=== PATIENT | male | born 1955 | race Caucasian/White ===

== ENCOUNTER → 2019-07-20 12:32 | Outpatient (CLI) | payer SELFPAY ==
[2019-07-20 14:34] LABS: Absolute Lymphocyte Count 1.78 X10^3/uL (0.83-4.51); Absolute Neutrophil Count 5.1 X10^3/uL (2.0-7.7); Basophil# 0.04 X10^3/uL; Basophil% 0.5 % (0-1); Eosinophil# 0.25 X10^3/uL; Eosinophils% 3.1 % (0-5); Hematocrit 45.5 % (40-54); Hemoglobin 15.4 g/dL (13.0-16.5); Lymphocyte # 1.78 X10^3/ul (4.0); Lymphocyte % 22.4 % (19-41); Mean Corp Hgb Conc 33.8 g/dL (32-36); Mean Corpuscular Hgb 30.9 pg (27.0-32.0); Mean Corpuscular Volume 91.4 fL (80-94); Mean Platelet Vol. 10.8 fl (6.2-12.0); Monocyte# 0.81 X10^3/uL; Monocyte% 10.2 % (0-10); NRBC Flagged by Analyzer 0 % (0-5); Neutrophil # 5.06 X10^3/uL (2.7-7.7); Neutrophil % 63.5 % (47-70); Platelet Count 260 K/mm3 (150-450); RBC Distribution Width CV 13.8 % (11.6-14.6); RBC Distribution Width SD 46.5 fl (35.1-43.9); Red Blood Count 4.98 M/mm3 (4.6-6.2)
[2019-07-20 14:55] LABS: ALB/GLOB Ratio 0.9 RATIO (0.9-2.4); AST(SGOT) 13 U/L (15-37); Alanine Aminotransfer ALT/SGPT 22 U/L (16-61); Albumin, Serum 3.5 g/dL (3.2-5.0); Alkaline Phosphatase 56 U/L (45-117); Anion Gap 6 (5-15); BUN 19 mg/dL (7-18); BUN/Creat Ratio 20.6 RATIO (10-20); Calcium,Total 8.8 mg/dL (8.5-10.1); Chloride 109 mmol/L (98-107); Creatinine, Serum 0.92 mg/dL (0.70-1.30); EST Glomerular Filtration Rate 88 mL/min (>60); Est Glom Filt Rate - Afr Amer 107 mL/min (>60); Globulin 3.9 g/dL (2.2-4.2); Glucose 81 mg/dL (74-106); Protein, Total 7.4 g/dL (6.4-8.2); Sodium Level 141 mmol/L (136-145); Thyroid Stim Hormone (TSH) 0.95 uIU/mL (0.358-3.74)
[2019-07-20 15:20] LABS: Microalbumin,Random Urine 12.5 mg/L (NO RANGE EST.); Microalbumin:Creatinine Ratio 8.4 mg/g CRE (<30 mg/g CRE)
== END ==
PROVIDERS: Family Provider Family Medicine; PCP Family Medicine; Referring Provider Family Medicine; Visit Provider Family Medicine
DX: N40.0 Benign prostatic hyperplasia without lower urinary tract symptoms (principal)
CPT/HCPCS: 36415; 80053; 82043; 82570; 84153; 84443; 85025; G0103

== ENCOUNTER → 2019-07-30 10:32 | Outpatient (CLI) | payer OTHER, SELFPAY | PROVIDERS: Family Provider Family Medicine; PCP Family Medicine; Referring Provider Nurse Practitioner Adult Health; Visit Provider Nurse Practitioner Adult Health | DX: R97.20 Elevated prostate specific antigen [PSA] (principal) | CPT/HCPCS: 36415; 84153 ==

== ENCOUNTER → 2019-09-10 06:11 | Outpatient (CLI) | payer OTHER, SELFPAY ==
--- NOTE | 2019-09-10 | IMM_PTH ---
PATIENT: NIKOLAS ADAM LOC: [facility] U#:[id number] AGE/SX: 70/M ROOM: RE09/10/[address]: Dr. Krish Iglesias MD : 1955 BED: DIS: SPEC #: [id number] RECD: 09/14/19 10:41 STATUS: YVES REQ #: [id number] ROSALIND: 09/10/19 00:[address]: Krish Iglesias DEPT: IMMUNOHISTOCHEMISTRY RECD BY: Valeri Villalta ENTERED: 09/14/19 10:42 SP TYPE: IMMUNO OTHR DR: Dr. Mazin Duran MD Tissues: A - PROSTATE RIGHT B - PROSTATE RIGHT D - PROSTATE LEFT E - PROSTATE LEFT Procedures: 34BE12 (add) P40 (add) 34BE12 (initial) PHYSICIAN & INSTITUTION [place] [id number] SPECIMEN INFORMATION: Tissue Source: A - Right prostate, apex, B - Right prostate, mid, D - Left prostate, apex, E - Left prostate, mid Clinical Info: Elevated PSA Specimen Number: [id number] A, B, D & E CPT code: 81593, 82369 x7 METHODOLOGY: Deparaffinized sections of prefer/formalin-fixed tissue or PAP/DQ stained slides are incubated with monoclonal/polyclonal antibodies/oligonucleotide probes. Localization is made via biotin free immunoperoxidase method. Appropriate controls are performed and reacted as expected. Results on target cell population are indicated in the following table: RESULTS: ANTIBODY / CLONE RESULT Block A P40 (BC28) positive 34BE12 (34BE12) positive Block B P40 (BC28) positive 34BE12 (34BE12) positive Block D P40 (BC28) negative 34BE12 (34BE12) positive Block E P40 (BC28) positive 34BE12 (34BE12) positive These tests were developed and their performance characteristics determined by [facility]. They may not have been cleared or approved by the U.S. Food and Drug Administration. The FDA has determined that such clearance or approval is not necessary. The above immunohistochemical/dualISH markers are ordered and reviewed by the Pathologist. INTERPRETATION: A. Right prostate, apex, core biopsy: Benign prostatic tissue. B. Right prostate, mid, core biopsy: Benign prostatic tissue. D. Left prostate, apex, core biopsy: Focal atypical small acinar proliferation. E. Left prostate, mid, core biopsy: Benign prostatic tissue. AM:nisreen 09/15/19
--- NOTE | 2019-09-10 08:00 | PROSBIL_PTH ---
PATIENT: NIKOLAS ADAM LOC: [facility] U#:[id number] AGE/SX: 70/M ROOM: RE09/10/[address]: Dr. Krish Iglesias MD : 1955 BED: DIS: SPEC #: [id number] RECD: 09/10/19 15:57 STATUS: YVES JERRY #: [id number] ROSALIND: 09/10/19 08:[address]: Krish Iglesias DEPT: SURGICAL PATHOLOGY RECD BY: Bryon Leung ENTERED: 09/11/19 12:35 SP TYPE: PROST BX RICARDO DR: Dr. Mazin Duran MD Tissues: A - PROSTATE RIGHT B - PROSTATE RIGHT C - PROSTATE RIGHT D - PROSTATE LEFT E - PROSTATE LEFT F - PROSTATE LEFT Procedures: PROSTATE BX HEADER OPERATION: Prostate biopsy PRE-OP DIAGNOSIS: Elevated PSA TISSUE SUBMITTED: A - Right apex, B - Right mid, C - Right base, D - Left apex, E - Left mid, F - Left base MICROSCOPIC DIAGNOSIS A. Right prostate, apex, core biopsy: Mild chronic prostatitis. See comment. B. Right prostate, mid, core biopsy: Mild chronic inflammation. See comment. C. Right prostate, base, core biopsy: Focal high-grade prostatic intraepithelial neoplasia (HGPIN). Minimal acute inflammation. D. Left prostate, apex, core biopsy: Focal atypical small acinar proliferation. See comment. E. Left prostate, mid, core biopsy: Minimal chronic inflammation. Focal high-grade prostatic intraepithelial neoplasia (HGPIN). See comment. F. Left prostate, base, core biopsy: Glandular atrophy. AM:nisreen 09/14/19 COMMENT A, B, D & E - Immunohistochemistry ([id number]) supports the above diagnosis Case has been reviewed in consultation with Dr. Elliott who concurs with the above diagnosis. IDC:SJ MICROSCOPIC DESCRIPTION Slides are reviewed. GROSS DESCRIPTION A - Received is one container designated prostate, right apex. The specimen consists of two elongated fragments of light galdamez-white soft tissue each measuring 1 cm in length and 0.1 cm in diameter. The specimen is totally submitted in one cassette. B - Received is one container designated prostate, right mid. The specimen consists of four elongated fragments of light galdamez-white soft tissue measuring 0.3 to 0.7 cm in length and 0.1 cm in diameter. The specimen is totally submitted in one cassette. C - Received is one container designated prostate, right base. The specimen consists of one elongated fragment of light galdamez-white soft tissue measuring 1 cm in length and 0.1 cm in diameter. The specimen is totally submitted in one cassette. D - Received is one container designated prostate, left apex. The specimen consists of one elongated fragment of light galdamez-white soft tissue measuring 1 cm in length and 0.1 cm in diameter. The specimen is totally submitted in one cassette. E - Received is one container designated prostate, left mid. The specimen consists of two elongated fragments of light galdamez-white soft tissue measuring 1 and 1.5 cm in length and 0.1 cm in diameter. The specimen is totally submitted in one cassette. F - Received is one container designated prostate, left base. The specimen consists of three elongated fragments of light galdamez-white soft tissue measuring 0.3 to 1 cm in length and 0.1 cm in diameter. The specimen is totally submitted in one cassette. / SJ:rg 09/11/19 TC:? CPT: 88001 x6
== END ==
PROVIDERS: Family Provider Family Medicine; PCP Family Medicine; Referring Provider Urology; Visit Provider Urology
DX: R97.20 Elevated prostate specific antigen [PSA] (principal)
CPT/HCPCS: 88305; 88341; 88342; G0416

== ENCOUNTER 2019-09-24 00:43 | Emergency (ER) | payer OTHER, SELFPAY ==
[2019-09-24 00:44] VITALS: BP 188/95; PULSE 78; RESP 20; TEMP 36.5; BMI 24.1
--- NOTE | 2019-09-24 01:15 | ED.DCSUM_ITS ---
History of Present Illness Chief Complaint: Complaint Detail of Chief Complaint: urinary retention Informant: Patient Onset: Today - few hrs Context: Gradual Onset Quality: unable to empty full bladder Location: suprapubic Current Severity: Severe Maximum Severity: Severe Worsened by: trying to urinate Relieved by: nothing Associated Symptoms: abd pain Narrative: For the past several weeks patient has been having trouble making a strong s tream of urine. Denies any hematuria, but occasionally it nichols. Subjective fevers off and on for 2 weeks, had a urinalysis performed and diagnosed with an infection in his urine and started on an antibiotic that he cannot remember what it is, started taking it 2 or 3 days ago. He saw urology Dr. Iglesias, had what felt like benign prostatic hypertrophy but had an elevated PSA at 18 so he had a biopsy done and is scheduled to follow-up with him tomorrow regarding the results. However, for the first time in the last several weeks, tonight he is unable to urinate. He last urinated 4 or 5 hours prior to arrival and it was fairly unremarkable otherwise. He denies any other new symptoms except for being constipated for the past 2 days. When he felt like he emptied his bladder 4 or 5 hours ago, he then had no abdominal pain. He has had no nausea or vomiting or pain in his back today. - Past Medical History (1) Enlarged prostate Status: Chronic Past Medical History - Allergies and Home Meds Allergies/Adverse Reactions: Allergies No Known Allergies Allergy (Verified 09/24/19 00:49) Primary Care Physician: Mazin Duran MD [Primary Care Provider] - Lives: Spouse/ Significant Other Smoking Status: Current every day smoker Review of Systems General: Reports: Fever, Subjective. Denies: Chills Eyes: Denies: Visual changes - bilaterally, Diplopia ENT: Denies: Rhinorrhea, Sore throat Cardiovascular: Denies: Chest pain, Palpitations Respiratory: Denies: Dyspnea, Cough, Dyspnea on exertion Gastrointestinal: Reports: Abdominal pain. Denies: Nausea, Vomiting, Diarrhea, Melena, Hematochezia Genitourinary: Reports: Dysuria, - - urinary retention. Denies: Hematuria, Frequency Musculoskeletal: Denies: Back pain, Extremity Pain Skin: Denies: Rash, Wounds Neurological: Denies: Headache, Weakness, Numbness Physical Exam Vital Signs/Narrative: Vital Signs Temp Pulse Resp BP 09/24/19 00:44 97.7 F L 78 20 H 188/95 H Inital Vital Signs reviewed: Yes General: Well nourished - but pacing in the room, uncomfortable, Well developed, No Acute Distress Head: Normocephalic, Atraumatic Eyes: Perrl, EOMI ENT: Moist mucous membranes, No rhinorrhea Neck: Supple, Nontender Cardiovascular: Regular rate, Regular rhythm, No murmurs Respiratory: No distress, CTA bilaterally, Chest nontender Abdomen: Soft, Normal bowel sounds, Tender - suprapubic, - - suprapubic distension. Negative for: Guarding, Rebound tenderness Back: Nontender, Normal Inspection. Negative for: CVA tenderness Extremities: Nontender, No edema Skin: Normal color, No rash Neurological: Alert, Oriented x3, Cranial nerves II-XII grossly intact, Normal Strength, Normal Sensation, Normal Gait Psychological: Normal affect, Normal Mood Diagnostic/Tx/Re-eval - Medical Decision Making Bautista catheter was placed after pretreatment with lidocaine urethral, and it was able to be passed easily by nursing. An initial 600 cc of normal-appearing, nonbloody, transparent yellow urine returned and the patient felt immediately better with resolution of his pain. He later had an episode of burning at the urethral meatus, but it improved and he asked for some Tylenol which was given. I do not feel we need to repeat an urinalysis since he is currently on antibiotics, and he appears to be on tamsulosin so I do not think we need to add any other medications right now. He is following up with urology tomorrow and is discharged home with a leg bag. ED Disposition - Plan for ED Patient: Disposition: Home or Assisted Living Diagnosis: Acute urinary retention, Enlarged prostate Instructions: URINARY RETENTION, Male Referrals: Mazin Duran MD [Primary Care Provider] - Krish Iglesias MD [STAFF PHYSICIAN] - Keep Juve appointment
[2019-09-24] MEDS: Lidocaine Jelly 2% 20 ML Syringe (URO-JET) 20 APPLIC TOPICAL (01:26)
[2019-09-24 01:33] VITALS: BP 150/95; PULSE 67; RESP 18; O2SAT 96
[2019-09-24 01:52] VITALS: BP 170/93; PULSE 67; O2SAT 97
--- NOTE | 2019-09-24 02:16 | ED.RN ---
LEG BAG APPLIED TO PATIENT LEG. THERE WASN'T ANY SLACK ON THE CATHETER IT SELF COMING OUT OF THE PENIS, SO THIS NURSE REMOVED THE CATHETER SECURE AND WAS ABLE TO PULL THE CATHETER ABOUT TWO INCHES OUT. A NEW CATHETER SECURE WAS APPLIED AND IT GAVE IT SOME MORE SLACK. PATIENT GOT UP TO TRY AND HAVE A BOWEL MOVEMENT AND C/O PAIN LEVEL 7/10 IN THE PENIS AREA. HE WANTED TO TALK TO THE DOCTOR BEFORE HE WAS DISCHARGE. DR. FOLEY WENT IN AND TALKED TO THE PATIENT, AND HE TOLD THIS NURSE TO GIVE THE PATIENT A FLEETS ENEMA AND LET HIM DO IT HIMSELF IN THE BATHROOM. FLEETS ENEMA GIVING TO THE PATIENT ALSO VERBAL INSTRUCTIONS GIVEN BY THIS NURSE.
[2019-09-24] MEDS: Fleet Enema 1 ML RECTAL (02:28)
--- NOTE | 2019-09-24 02:32 | ED.RN ---
DR. FOLEY MADE AWARE THAT PATIENT DID NOT HAVE AND RESULTS WITH THE FLEETS ENEMA. THIS NURSE TOLD HIM THAT SITTING ON THE TOILET IS NOT THE BEST METHOD BECAUSE IT MAKES IT DIFFICULT TO HOLD THE FLUID. I SUGGESTED THAT HE DO A FLEETS ENEMA AT HOME LAYING ON HIS LEFT SIDE AND HOLD THE FLUID. I ALSO EXPLAINED TO HIM THAT THE STOOL MIGHT NOT BE FAR DOWN INTO THE COLON NEAR THE RECTUM AND SOME MAGNESIUM CITRATE MIGHT BE A BETTER OPTION TO DRINK AT HOME. DR. FOLEY WAS ON WITH THESE INSTRUCTIONS. DR. FOLEY IS ALSO AWARE OF PATIENT'S BP ON DISCHARGE AND HE THOUGHT IT WAS D/T PATIENT'S PAIN.
== END 2019-09-24 02:35 | disposition home or self-care (01) ==
PROVIDERS: Emergency Provider Emergency Medicine; PCP Family Medicine
DX: N40.1 Benign prostatic hyperplasia with lower urinary tract symptoms (principal); R33.8 Other retention of urine; K59.00 Constipation, unspecified; F17.200 Nicotine dependence, unspecified, uncomplicated; Z79.899 Other long term (current) drug therapy
CPT/HCPCS: 51702; 99283

== ENCOUNTER 2019-09-30 13:56 | Day surgery (SDC) | payer OTHER, SELFPAY ==
[2019-09-29 08:14] VITALS: BP 138/58; PULSE 70; RESP 17; TEMP 36.7; O2SAT 97; BMI 23.7
--- NOTE | 2019-09-29 08:43 | SDCEKG_ITS ---
Test Reason : Blood Pressure : / mmHG Vent. Rate : 065 BPM Atrial Rate : 065 BPM P-R Int : 146 ms QRS Dur : 100 ms QT Int : 416 ms P-R-T Axes : 072 065 -07 degrees QTc Int : 432 ms Normal sinus rhythm Cannot rule out Inferior infarct , age undetermined Abnormal ECG Confirmed by JEFFERY DE PAZ ([id number]), graphics editor AFAU HARP ([id number]) on 10/01/2019 8:24:30 AM Referred By: Krish Iglesias Confirmed By:JEFFERY DE PAZ
[2019-09-30] VITALS (11 sets, daily range): BP systolic 117–156; BP diastolic 65–95; PULSE 65–83; RESP 16–20; TEMP 36.3–36.8; O2SAT 92–95; BMI 23.7
[2019-09-30] MEDS: Lactated Ringers 1,000 ML 100 ML IV ×2 (14:18→17:41)
--- NOTE | 2019-09-30 15:55 | PROS_PTH ---
PATIENT: NIKOLAS ADAM [place] [facility] [place][id number] AGE/SX: 64/M ROOM: RE09/30/[address]: Dr. Krish Iglesias MD : 1955 BED: DIS: 10/01/2019 SPEC #: [id number] RECD: 10/01/19 12:25 STATUS: YVES JERRY #: [id number] ROSALIND: 09/30/19 15:[address]: Krish Iglesias DEPT: SURGICAL PATHOLOGY RECD BY: Andres Martinez ENTERED: 10/01/19 14:00 SP TYPE: TURP OTHR DR: Dr. Mazin Duran MD Tissues: Prostate, NOS Procedures: Surgery Specimen Level IV HEADER OPERATION: Cystoscopy, TUR of prostate, Olympus PRE-OP DIAGNOSIS: Benign prostatic hypertrophy with urinary retention TISSUE SUBMITTED: Prostate tissue MICROSCOPIC DIAGNOSIS Prostate, transurethral resection: Benign nodular hyperplasia, glandular and stromal types. Chronic prostatitis with focal acute prostatitis. AM:nisreen 10/02/19 MICROSCOPIC DESCRIPTION Slides are reviewed. GROSS DESCRIPTION Received is one container labeled with the patient's name and designated prostate tissue. The specimen consists of multiple irregular fragments of pink-galdamez, rubbery, soft tissue that in aggregate weigh 14.8 gm and measure in aggregate 6 x 5 x 2.5 cm. The entire specimen is submitted in 12 cassettes. / SJ:nisreen 10/01/19 TC:3 CPT: 80198
[2019-09-30] MEDS: Cefazolin 2 GM in 0.9% Normal Saline 100 ML IV (16:18)
--- NOTE | 2019-09-30 16:19 | DCINST_ITS ---
Discharge Diet: Light diet - advance as tolerated Discharge Activity: Return to Normal Activity Call your doctor if your incision/area has: Sudden Increased Bleeding Call your doctor if you observe: Fever of 101 or Higher, Inability to urinate, Uncontrolled pain Suture Line Care: Avoid Pulling/Pushing, Avoid Pinching/Bending Instructions: Transurethral Resection of the Prostate (TURP): Home Recovery Allergies/Adverse Reactions: Allergies No Known Allergies Allergy (Verified 09/30/19 14:11) Medications to take at Discharge Tamsulosin HCl [Flomax] 0.4 mg PO DAILY 09/24/19 Ciprofloxacin HCl 500 mg PO BID 09/29/19 Ciprofloxacin [Cipro] 500 mg PO BID #14 tab 09/30/19 Ibuprofen 600 mg PO Q6H PRN PRN #20 tab 09/30/19 The following prescriptions were given: Ciprofloxacin [Cipro] 500 mg PO BID #14 tab Transmission Status: Sent to [id number] Ibuprofen 600 mg PO Q6H PRN PRN #20 tab PRN Reason: Pain Score 1-10/10 Transmission Status: Sent to [id number] Primary Care Physician: Mazin Duran MD [Primary Care Provider] - Test Results: Test results from this visit will be discussed in further detail at your follow- up appointment, if applicable. Please Follow Up With: Krish Iglesias MD When: in 2 weeks, please call to make an appointment. Proposed Discharge Date: 10/01/19
--- NOTE | 2019-09-30 17:32 | OP.PCM_ITS ---
Report of Operation Date of Procedure: 09/30/19 Pre-Operative Diagnosis: BPH with obstruction and urinary retention Post-Operative Diagnosis: Same Surgery/Procedure Performed:: Transurethral resection of the prostate Description of Surgical Findings:: 64-year-old male with a very large prostate about 100 g of developed retention of urine he is failed several voiding trials he is on medical therapy he is elected to undergo transurethral resection to hopefully restore normal voiding we talked about the risk of surgery including bleeding infection control problems after surgery sphincter problems retrograde ejaculation. After talking about the surgery explaining everything in detail has done he signed the consent form all his questions were answered. 64-year-old male taken back to the operating room at the smooth induction of general anesthesia he was placed in dorsolithotomy position the penis and testicles were prepped and draped in usual sterile fashion, we removed the catheter he has been now put in a 26 Somali continuous-flow resectoscope and inspected the prostate and bladder he had bilateral hypertrophy no median lobe identified the right and left ureteral orifice no tumors were seen within the bladder he had a very large protruding flat prostate into the bladder I then started with the resection at the floor the prostate working my way to the roof at the 12:[address] back to the verumontanum I resected the right lobe of the prostate and then resect the left lobe of the prostate I then resected all the tissue we then very carefully resected the apical tissue I did a flow test had a nice wide open flow sphincter was intact took about an hour to resect the entire prostate and a very complete resection had a lot of tissue out. After obtaining hemostasis but a 22 Somali catheter in the bladder and francisco nuous irrigation the urine was nice and clear anesthesia was reversed is taken back to PACU good condition. The end of the resection we identified the right ureter orifice and the left ureteral orifices were uninjured we identified the verumontanum this was uninjured and the sphincter was intact. Type of Anesthesia:: General Drains: tanner. - Admit VTE Documentation VTE Present on Admission: No
[2019-09-30] MEDS: 0.9% Normal Saline 1,000 ML 75 ML IV (19:43)
[2019-09-30] MEDS: oxyCODONE 5 MG Tablet PO (21:58)
[2019-09-30] MEDS: Docusate Sodium 100 MG Capsule PO (21:59)
[2019-10-01] MEDS: Ciprofloxacin 400 MG/200 ML BAG 200 MG IV ×2 (00:17→11:40)
[2019-10-01] MEDS: oxyCODONE 5 MG Tablet PO (02:53)
[2019-10-01] MEDS: Tolterodine Tartrate 4 MG CAP.SA PO (02:54)
[2019-10-01 05:25] VITALS: BP 123/68; PULSE 68; RESP 18; TEMP 36.4; O2SAT 96
[2019-10-01 06:26] LABS: Hematocrit 40.2 % (40-54); Hemoglobin 13.6 g/dL (13.0-16.5); Mean Corp Hgb Conc 33.8 g/dL (32-36); Mean Corpuscular Hgb 31.1 pg (27.0-32.0); Platelet Count 346 K/mm3 (150-450); RBC Distribution Width CV 13.6 % (11.6-14.6); RBC Distribution Width SD 46.4 fl (35.1-43.9); Red Blood Count 4.37 M/mm3 (4.6-6.2)
[2019-10-01 06:50] LABS: Anion Gap 5 (5-15); BUN 18 mg/dL (7-18); BUN/Creat Ratio 17.8 RATIO (10-20); Calcium,Total 8.4 mg/dL (8.5-10.1); Chloride 109 mmol/L (98-107); Creatinine, Serum 1.01 mg/dL (0.70-1.30); EST Glomerular Filtration Rate 80 mL/min (>60); Est Glom Filt Rate - Afr Amer 96 mL/min (>60); Estimated Creatinine Clearance 80.77 ml/min; Glucose 122 mg/dL (74-106); Potassium 4.4 mmol/L (3.5-5.1); Sodium Level 139 mmol/L (136-145)
[2019-10-01] MEDS: 0.9% Normal Saline 1,000 ML 75 ML IV (08:05)
[2019-10-01 08:36] VITALS: BP 121/68; PULSE 72; RESP 16; TEMP 36.3; O2SAT 96
[2019-10-01] MEDS: Pantoprazole Sodium 40 MG Tablet PO (09:25)
[2019-10-01] MEDS: Docusate Sodium 100 MG Capsule PO (09:25)
[2019-10-01 12:45] VITALS: BP 118/83; PULSE 72; RESP 16; TEMP 36.4; O2SAT 96
== END 2019-10-01 13:28 | disposition home or self-care (01) ==
LOC: SDC 13:56 → AC 13:58 → MS3 16:21
PROVIDERS: PCP Family Medicine; Referring Provider Urology; Visit Provider Urology
PROC: (CPT 52630; principal; 2019-09-30 15:45)
DX: N40.1 Benign prostatic hyperplasia with lower urinary tract symptoms (principal); N41.0 Acute prostatitis; N41.1 Chronic prostatitis; R33.8 Other retention of urine; N13.8 Other obstructive and reflux uropathy; R97.20 Elevated prostate specific antigen [PSA]; K21.9 Gastro-esophageal reflux disease without esophagitis; Z87.891 Personal history of nicotine dependence; Z79.899 Other long term (current) drug therapy
CPT/HCPCS: 52630; 80048; 85027; 88305; 93005; 99251; J7030; J7120; G0463; J0744

== ENCOUNTER 2020-11-25 15:57 | Outpatient (RCR) | payer OTHER, SELFPAY ==
[2019-09-30 19:27] VITALS: BMI 23.7
[2020-11-25] MEDS: COVID-19 VACC, MRNA(PFIZER)/PF 30 MCG/0.3 ML SYRINGE IM (08:39)
[2020-12-16] MEDS: COVID-19 VACC, MRNA(PFIZER)/PF 30 MCG/0.3 ML SYRINGE IM (08:27)
== END 2020-11-25 23:59 ==
LOC: IMMUN 15:57
PROVIDERS: PCP Family Medicine; Visit Provider Family Medicine
DX: Z23 Encounter for immunization (principal)
CPT/HCPCS: 0001A; 0002A; 91300

== ENCOUNTER → 2021-04-03 18:03 | Outpatient (CLI) | payer OTHER, SELFPAY ==
[2019-09-30 19:27] VITALS: BMI 23.7
== END ==
PROVIDERS: PCP Family Medicine; Referring Provider Family Medicine; Visit Provider Family Medicine
DX: L02.619 Cutaneous abscess of unspecified foot (principal)
CPT/HCPCS: 87070; 87205

== ENCOUNTER 2021-10-31 09:08 | Inpatient (IN) | payer OTHER, SELFPAY ==
[2021-10-31] VITALS (9 sets, daily range): BP systolic 115–122; BP diastolic 75–95; PULSE 80–104; RESP 16–18; TEMP 36.6–36.7; O2SAT 94–97; BMI 21.6
--- NOTE | 2021-10-31 09:27 | EKG12_ITS ---
Test Reason : Blood Pressure : / mmHG Vent. Rate : 100 BPM Atrial Rate : 100 BPM P-R Int : 144 ms QRS Dur : 118 ms QT Int : 370 ms P-R-T Axes : 072 069 196 degrees QTc Int : 477 ms Normal sinus rhythm Incomplete left bundle branch block Nonspecific ST and T wave abnormality Prolonged QT Abnormal ECG Confirmed by HEMA BLUM, KAPIL ([id number]), fan mail editor EDSON REN ([id number]) on 11/02/2021 8:09:38 AM Referred By: NICOLLE Confirmed By:KAPIL GARRIDO MD
--- NOTE | 2021-10-31 09:28 | EDS_ITS ---
HPI History of Present Illness Chief Complaint: Nausea/Vomiting Informant: patient and spouse/S.O. Narrative Narrative: Patient presented with symptoms that have been going on for about 10 days. His started initially with similar symptoms but never really got dyspnea. This patient started with upper airway nasal congestion mild sore throat. He is then progressed to nonproductive cough with dyspnea and some mild dyspnea on exertion. He is occasionally had a tight feeling in his chest with the dyspnea but never had chest pain. He is also had some baseline nausea throughout this. He vomited this morning but that was only after taking Augmentin which was prescribed for him yesterday. He has not had diarrhea. His appetite has been down and he is lost almost 10 pounds in the last 10 days to 2 weeks. He has not had fevers. He does have significant malaise. He has mild myalgias. Both he and his are fully vaccinated and boosted. He had LiveBid vaccines. She had Covid in September and recovered well. His biggest concern is the dyspnea that he gets. He has no chronic medical conditions No medications other than the Augmentin started yesterday No known drug allergies No recent surgeries Lives with , active, not currently smoker. [facility] Medical History (Updated 10/31/21 @ 17:[address] Deangelo Snow MD) Congestive heart failure (CHF) Former smoker Kidney stones Home Medications amoxicillin-pot clavulanate 1 tab PO BID 10/31/21 [History Last Taken 10/30/21] Allergy/AdvReac Type Severity Reaction Status Date / Time No Known Allergies Allergy Verified 10/31/21 09:12 Family History (Updated 10/31/21 @ 12:[address] Mike Alicia MD) Father Ruptured thoracic aortic aneurysm Mother Hepatic cancer Surgical History History of prostate surgery Social History Smoking Status: Former smoker ROS ROS ED Constitutional Constitutional ED: Reports weight loss; Denies chills or fever(s) Eyes Eyes: Denies blurry vision ENT ENT ED: Reports rhinorrhea and sore throat Cardiovascular Cardiovascular: Denies chest pain, palpitations or racing heartbeat Respiratory/Chest Respiratory/Chest: Reports cough and dyspnea; Denies sputum Gastrointestinal Gastrointestinal: Reports nausea and vomiting; Denies abdominal pain or diarrhea Genitourinary Genitourinary ED: Denies dysuria or hematuria Musculoskeletal Musculoskeletal: Reports myalgias Integumentary Denies rash Neurologic Neurologic: Denies headache(s), paresthesias or weakness Psychiatric Psychiatric: Denies depression Endocrine Endocrinology: Denies polydipsia or polyuria Allergic/Immunologic Allergic/Immunologic ED: Denies mouth swelling or urticaria EXAM Physical Exam Const Vital Signs: 10/31/21 09:09 10/31/21 09:11 10/31/21 09:52 Temperature 98 F 98 F Temperature Source Temporal Temporal Pulse Rate 80 80 98 Respiratory Rate 18 18 16 Respiratory Pattern Normal Blood Pressure 120/88 H 120/88 H Blood Pressure Mean 98 98 Pulse Ox 95 95 Oxygen Delivery Method Room Air Room Air 10/31/21 11:14 Temperature Temperature Source Pulse Rate 97 Respiratory Rate 18 Respiratory Pattern Blood Pressure 121/75 H Blood Pressure Mean 90 Pulse Ox 96 Oxygen Delivery Method Room Air Positive well nourished and well developed General Appearance ED: well developed and NAD; Negative for cyanotic or diaphoretic HEENT Reports moist mucous membranes Eyes General Eye ED: Negative for pale conjunctiva or scleral icterus Neck no JVD Chest Wall inspection of chest normal and palpation of chest normal Resp normal respiratory effort and No clear to auscultation bilaterally Resp Narrative: Lungs actually sound relatively clear. There may be minimal prolonged expiration but not significant. I do not hear active wheezing. There is no pain with deep breath. Effort and Inspection: Negative for pain with movement Auscultation: Negative for rales, rhonchi or wheezes Cardio regular rate, regular rhythm and no murmurs GI normal to inspection, nondistended, normoactive bowel sounds and non-tender Palpation: soft Back/Spine no CVA tenderness Extremity normal to inspection Extremity Narrative: No cords, edema, tenderness, distended veins. Distal pulses are normal. General Extremety ED: Negative for edema or tenderness General Extremity: Negative for edema Neuro Sensorium / Orientation: alert Psych mental status grossly normal Skin no rashes or lesions noted MDM MDM MDM Narrative Medical decision making narrative: Shows normal white count hemoglobin. D-dimer is elevated 1.43. Electrolytes show no marked abnormalities. There is mild dehydration. He is given some fluids. Final PCR came back negative. X-ray showed some patchy infiltrate mostly on the right. With this and the D-dimer we did do a CTA. This showed bilateral effusions greater on the right and some possible patchy infiltrate. Of note, the patient is already on antibiotics and has taken them so they were not given here. Patient also had significantly elevated BNP. I think with the dyspnea, elevated BNP, CT findings hospitalization is appropriate. Lab Data Attestation: I reviewed the patient's lab results. Labs: Laboratory Results - last 24 hr 10/31/21 10/31/21 10/31/21 09:35 09:35 09:35 WBC 7.9 RBC 5.21 Hgb 16.4 Hct 46.4 MCV 89.1 MCH 31.5 MCHC 35.3 RDW Std Deviation 45.9 H RDW Coeff of Danilo 14.0 Plt Count 249 MPV 11.0 Immature Gran % (Auto) 0.400 Neut % (Auto) 69.2 Lymph % (Auto) 19.5 [place] % (Auto) 8.7 Eos % (Auto) 1.8 Baso % (Auto) 0.4 Absolute Neuts (auto) 5.5 Absolute Lymphs (auto) 1.54 Nucleated RBC % 0 D-Dimer Quant (PE/DVT) 1.43 H* Sodium 139 Potassium 4.1 Chloride 108 H Carbon Dioxide 22.0 Anion Gap 9 BUN 21 H Creatinine 0.91 Estim Creat Clear Calc 81.55 Est GFR (MDRD) Af Amer 108 Est GFR (MDRD) Non-Af 89 BUN/Creatinine Ratio 23.0 H Glucose 99 Calcium 8.4 L Troponin I High Sens 91 H B-Natriuretic Peptide TSH COVID-19 ([facility]) 10/31/21 10/31/21 10/31/21 09:35 09:35 09:35 WBC RBC Hgb Hct MCV MCH MCHC RDW Std Deviation RDW Coeff of Danilo Plt Count MPV Immature Gran % (Auto) Neut % (Auto) Lymph % (Auto) [place] % (Auto) Eos % (Auto) Baso % (Auto) Absolute Neuts (auto) Absolute Lymphs (auto) Nucleated RBC % D-Dimer Quant (PE/DVT) Sodium Potassium Chloride Carbon Dioxide Anion Gap BUN Creatinine Estim Creat Clear Calc Est GFR (MDRD) Af Amer Est GFR (MDRD) Non-Af BUN/Creatinine Ratio Glucose Calcium Troponin I High Sens B-Natriuretic Peptide 2474.2 H TSH 1.44 COVID-19 ([place]) Not Detected Radiography Diagnostic Testing: Clinical Impression(s) from Imaging Studies Chest X-Ray 10/31/21 10:00 IMPRESSION: Patchy right lower lobe infiltrate and blunting of the right costophrenic angle. Electronically Signed: Spencer Choi MD at 10:24 EST , Chest CTA 10/31/21 10:32 IMPRESSION: Bilateral pleural effusions right greater than left with bibasilar infiltrates worse on the right side. Electronically Signed: Spencer Choi MD at 10:54 EST , EKG Initial EKG: Comments: EKG done for dyspnea read by me shows a normal sinus rhythm with overall rate of 100. There is a incomplete left bundle branch block/LVH with diffuse nonspecific ST and T wave changes. However, no convincing evidence of acute infarct or ischemia. [place] interval is normal. QRS duration is just within normal at 118. QTc is high end of normal at 477 ms. Discharge Plan Dx/Rx/DC Orders Clinical Impression: New onset of congestive heart failure, Acute dyspnea, Bilateral pleural effusion Disposition Disposition: Acute Care Hospital [facility], [place] Discharge Date/Time: 10/31/21 13:32
[2021-10-31 09:46] LABS: Absolute Lymphocyte Count 1.54 X10^3/uL (0.83-4.51); Absolute Neutrophil Count 5.5 X10^3/uL (2.0-7.7); Basophil# 0.03 X10^3/uL; Basophil% 0.4 % (0-1); Eosinophil# 0.14 X10^3/uL; Eosinophils% 1.8 % (0-5); Hematocrit 46.4 % (40-54); Hemoglobin 16.4 g/dL (13.0-16.5); Lymphocyte # 1.54 X10^3/ul (0.83-4.51); Lymphocyte % 19.5 % (19-41); Mean Corp Hgb Conc 35.3 g/dL (32-36); Mean Corpuscular Hgb 31.5 pg (27.0-32.0); Mean Corpuscular Volume 89.1 fL (80-94); Monocyte# 0.69 X10^3/uL; Monocyte% 8.7 % (0-10); NRBC Flagged by Analyzer 0 % (0-5); Neutrophil # 5.47 X10^3/uL (2.7-7.7); Neutrophil % 69.2 % (47-70); Platelet Count 249 K/mm3 (150-450); RBC Distribution Width SD 45.9 fl (35.1-43.9); Red Blood Count 5.21 M/mm3 (4.6-6.2); White Blood Count 7.9 K/mm3 (4.4-11.0)
[2021-10-31] MEDS: Ipratropium/Albuterol Sulfate 3 ML AMPUL.NEB INHALATION (09:52)
--- NOTE | 2021-10-31 10:00 | RAD_ITS ---
STUDY: X-RAY CHEST REASON FOR EXAM: Male, 66 years old. Cough TECHNIQUE: Single AP portable view of the chest. COMPARISON: None. FINDINGS: EKG electrodes are seen. Patchy right lower lobe infiltrate. Blunting of the right costophrenic angle. Normal size heart. Normal mediastinum and jairo. Normal visualized pulmonary arteries. Normal visualized aortic arch and descending thoracic aorta. Normal visualized thoracic spine. Normal visualized ribs, clavicles, and shoulders. There is no demonstrated abnormality of the visualized soft tissue structures of the upper abdomen. RAD/Chest 1 View (Portable) IMPRESSION: Patchy right lower lobe infiltrate and blunting of the right costophrenic angle. Electronically Signed: Spencer Choi MD at 10:24 EST ,
[2021-10-31 10:04] LABS: Anion Gap 9 (5-15); BUN 21 mg/dL (7-18); Calcium,Total 8.4 mg/dL (8.5-10.1); Chloride 108 mmol/L (98-107); Creatinine, Serum 0.91 mg/dL (0.70-1.30); EST Glomerular Filtration Rate 89 mL/min (>60); Est Glom Filt Rate - Afr Amer 108 mL/min (>60); Estimated Creatinine Clearance 81.55 ml/min; Glucose 99 mg/dL (74-106); Potassium 4.1 mmol/L (3.5-5.1); Sodium Level 139 mmol/L (136-145); Troponin-I HS 91 pg/mL (3.0-78.0)
[2021-10-31 10:08] LABS: D-Dimer Quantitative (DVT/PE) 1.43 FEU/ug/m (0.27-0.49)
[2021-10-31 10:18] LABS: BNP,B-Type NATRIURETIC PEPTIDE 2474.2 pg/mL (0-100)
--- NOTE | 2021-10-31 10:32 | CT_ITS ---
STUDY: CTA CHEST REASON FOR EXAM: Male, 66 years old. PE, elevated D-dimer RADIATION DOSAGE (If Supplied By Facility): CTDIvol = ( 11.43 ) mGy, DLP = ( 329.11 ) mGycm TECHNIQUE: The examination was performed with the intravenous administration of IV 100mL Isovue-370. Post-processing of the angiographic images was performed, with multiplanar reformation and 3D reconstruction. Individualized dose optimization techniques were used for this CT. COMPARISON: Comparison is made with prior chest radiograph done earlier today. FINDINGS: Normal enhancement of the main pulmonary artery and right and left pulmonary arteries. Normal enhancement of the bilateral peripheral pulmonary arteries. There is no demonstrated pulmonary embolism. Normal thoracic aorta and visualized great vessels. There is no demonstrated aortic dissection. Normal heart and pericardium. Normal mediastinum. There are calcified bilateral hilar lymph nodes. Scattered calcified granulomas in the left upper lobe. Normal visualized trachea and bronchi. The lungs are well expanded. Small bilateral pleural effusions right greater than left. Patchy bibasilar infiltrates worse at the right lung base. Increased interstitial markings. Normal chest wall structures. Normal osseous structures. Normal visualized upper abdomen. CT/CTA Chest W/WO Contrast IMPRESSION: Bilateral pleural effusions right greater than left with bibasilar infiltrates worse on the right side. Electronically Signed: Spencer Choi MD at 10:54 EST ,
--- NOTE | 2021-10-31 12:12 | NURSING ---
HOSPITALIST FOR DR VALVERDE
--- NOTE | 2021-10-31 12:19 | ECHOCS_ITS ---
Reason For Study: SOB, CHF Procedure This was a 2D Doppler, Color Flow transthoracic echocardiogram. The study was technically difficult. Contrast injection was performed. Exam performed portable in patient room. Left Ventricle Severely dilated left ventricle. Severe segmental systolic dysfunction (see wall motion). The estimated ejection fraction is 10 %. There is evidence of diastolic dysfunction. Anterio-Basal: Hypokinetic. Lateral-Basal: Hypokinetic. Posterior-Basal: Akinetic. Infero-Basal: Akinetic. Basal inferoseptal: Hypokinetic. Basal anteroseptal: Hypokinetic. Mid-Anterior : Akinetic. Mid-Lateral : Hypokinetic. Mid-Posterior: Akinetic. Mid-Inferior: Akinetic. Mid-inferoseptal : Akinetic. Mid- anteroseptal : Akinetic. [place] : Akinetic. Right Ventricle Normal RV size. Normal systolic function. Atria Normal right atrium. No doppler evidence for ASD. Mitral Valve There is no mitral annular calcification. Mild papillary muscle dysfunction of the mitral valve. Moderate (2+) eccentric mitral valve insufficiency. Tricuspid Valve Normal tricuspid valve. Moderate (2+) eccentric tricuspid valve insufficiency. Right ventricular systolic pressure estimated to be 36 mmHg. Aortic Valve Trisinus/trileaflet aortic valve. Mild diffuse aortic valve thickening. Mild focal aortic valve calcification. Pulmonic Valve The pulmonic valve is not well visualized. Great Vessels Normal sized aortic root. Pericardium/Pleural No pericardial effusion. Medication Diluted definity 5ml given slow IV push to enhance endocardial definition. MMode/2D Measurements & Calculations LVIDd: 6.4 cm IVSd: 1.1 cm Ao root diam: 3.4 cm LVIDs: 6.2 cm LVPWd: 0.95 cm RVDd: 3.1 cm FS: 3.7 % LAV(MOD-bp): 42.1 ml LVAd ap4: 65.6 cm2 LVAd ap2: 62.2 cm2 LAV(MOD-bp) Indexed: 22.2 ml/m2 LVLd ap4: 10.8 cm LVLd ap2: 10.2 cm LAV(MOD-sp2): 44.9 ml EDV(MOD-sp4): 328.6 ml EDV(MOD-sp2): 314.5 ml LAV(MOD-sp4): 39.5 ml EDV(sp4-el): 338.0 ml EDV(sp2-el): 321.2 ml LVAs ap4: 57.4 cm2 LVAs ap2: 58.4 cm2 LVLs ap4: 10.2 cm LVLs ap2: 10.8 cm ESV(MOD-sp4): 264.1 ml ESV(MOD-sp2): 257.6 ml ESV(sp4-el): 274.7 ml ESV(sp2-el): 268.5 ml EF(MOD-sp4): 19.6 % EF(MOD-sp2): 18.1 % EF(sp4-el): 18.7 % SV(MOD-sp4): 64.5 ml SV(MOD-sp2): 56.9 ml SV(sp4-el): 63.3 ml LA A4 area: 15.9 cm2 LA dimension(2D): 3.2 cm RA A4 area: 12.1 cm2 Doppler Measurements & Calculations MV E max dilan: 55.9 cm/sec Lat Peak E' Dilan: 3.9 cm/sec Med Peak E' Dilan: 3.3 cm/sec MV A max dilan: 62.1 cm/sec E/E' lat: 14.3 E/E' med: 17.1 MV E/A: 0.90 Ao V2 max: 69.1 cm/sec LV V1 max: 56.3 cm/sec PA V2 max: 49.6 cm/sec Ao max P.9 mmHg LV V1 max P.3 mmHg TR max dilan: 285.3 cm/sec TR max P.6 mmHg ECHO/Echo Complete W/ Contrast Interpretation Summary The study was technically difficult. Contrast injection was performed. Severely dilated left ventricle. Severe segmental systolic dysfunction (see wall motion). The estimated ejection fraction is 10 %. Mild papillary muscle dysfunction of the mitral valve. Moderate (2+) eccentric mitral valve insufficiency. Moderate (2+) eccentric tricuspid valve insufficiency. Mild diffuse aortic valve thickening. Mild focal aortic valve calcification. Right ventricular systolic pressure estimated to be 36 mmHg. There is evidence of diastolic dysfunction. Comment: 2D echocardiographic and contrast enhanced images obtained potentially compatible with a left ventricular apical thrombus. Ordering Physician: Mike Alicia Referring Physician: Mazin Duran MD Performed By: Madhu Moise RCS
--- NOTE | 2021-10-31 12:21 | HP.PCM.HOS_ITS ---
HPI - General General Date of Admission: 10/31/21 Date of Service: 10/31/21 Chief Complaint: Shortness of breath HPI Narrative NIKOLAS ADAM, is a 66 M relatively good health who presented with shortness of breath. Patient symptoms started almost 10 days prior to his admission. He has noticed increasing shortness of breath with minimal activity. Patient denies any fever no chills. Has been treated for suspected pneumonia outpatie nt. Patient condition however did not improve hence the decision to present to the emergency department. In the ED she was noted to have elevated D-dimer subsequent CT of the chest was negative for PE however did demonstrate Bilateral pleural effusions right greater than left with bibasilar infiltrates worse on the right side patient was also found to have elevated BNP. Decision was made to admit patient for subsequent inpatient evaluation and management. Of note patient has been vaccinated against COVID-19 including the booster. did experience breakthrough infection in September patient however tested negative. His Covid assay in the ED was also negative. PFS Home Medications amoxicillin-pot clavulanate 1 tab PO BID 10/31/21 [History Last Taken 10/30/21] Allergy/AdvReac Type Severity Reaction Status Date / Time No Known Allergies Allergy Verified 10/31/21 09:12 Family History (Updated 10/31/21 @ 12:[address] Mike Alicia MD) Father Ruptured thoracic aortic aneurysm Mother Hepatic cancer Surgical History History of prostate surgery Social History Smoking Status: Former smoker ROS ROS Narrative GENERAL: denies fever, chills, night sweats, HEENT: denies headache, sinus congestion, or drainage, dysphagia RESPIRATORY: shortness of breath, dyspnea on exertion CARDIAC: denies chest pain, palpitations, orthopnea, PND GASTROINTESTINAL: denies abdominal pain, melena, GENITOURINARY: denies dysuria, urgency, frequency, EXTREMITY: denies swelling MUSCULOSKELETAL: denies current joint pain or tenderness NEUROLOGIC: denies focal numbness, weakness, tingling HEMATOLOGIC: denies easy bruising and/or hemorrhage INTEGUMENT: denies rashes PSYCHIATRIC: denies suicidal or homicidal ideation Vital Signs Vital Signs Vital Signs: 10/31/21 09:09 10/31/21 09:11 10/31/21 09:52 Temperature 98 F 98 F Temperature Source Temporal Temporal Pulse Rate 80 80 98 Respiratory Rate 18 18 16 Respiratory Pattern Normal Blood Pressure 120/88 H 120/88 H Blood Pressure Mean 98 98 Pulse Ox 95 95 Oxygen Delivery Method Room Air Room Air 10/31/21 11:14 Temperature Temperature Source Pulse Rate 97 Respiratory Rate 18 Respiratory Pattern Blood Pressure 121/75 H Blood Pressure Mean 90 Pulse Ox 96 Oxygen Delivery Method Room Air Weight Weight: 70.307 kg Body Mass Index (BMI) 21.6 Physical Exam Narrative GENERAL: cooperative HEENT: Atraumatic; EYES; Anicteric, Normal Conjunctiva NECK; supple, normal thyroid, RESPIRATORY: Diminished to auscultation CARDIOVASCULAR: Regular S1 S2, GI: soft, normoactive bowel sounds, : No Renal angle tenderness; EXTREMITIES: No edema, no clubbing, MUSCULOSKELETAL: no muscle wasting NEURO: Awake; no lateralizing signs. SKIN: No Rash PSYCH; Flat affect Results Lab / Micro Data Result Diagrams: 10/31/21 09:35 10/31/21 09:35 Labs: Laboratory Results - last 24 hr 10/31/21 09:35: WBC 7.9, RBC 5.21, Hgb 16.4, Hct 46.4, MCV 89.1, MCH 31.5, MCHC 35.3, RDW Std Deviation 45.9 H, RDW Coeff of Danilo 14.0, Plt Count 249, MPV 11.0, Immature Gran % (Auto) 0.400, Neut % (Auto) 69.2, Lymph % (Auto) 19.5, Boundary % (Auto) 8.7, Eos % (Auto) 1.8, Baso % (Auto) 0.4, Absolute Neuts (auto) 5.5, Absolute Lymphs (auto) 1.54, Nucleated RBC % 0 10/31/21 09:35: D-Dimer Quant (PE/DVT) 1.43 H* 10/31/21 09:35: Sodium 139, Potassium 4.1, Chloride 108 H, Carbon Dioxide 22.0, Anion Gap 9, BUN 21 H, Creatinine 0.91, Estim Creat Clear Calc 81.55, Est GFR (MDRD) Af Amer 108, Est GFR (MDRD) Non-Af 89, BUN/Creatinine Ratio 23.0 H, Glucose 99, Calcium 8.4 L, Troponin I High Sens 91 H 10/31/21 09:35: B-Natriuretic Peptide 2474.2 H 10/31/21 09:35: COVID-19 ([facility]) Not Detected Radiology Impression Chest X-Ray 10/31/21 10:00 IMPRESSION: Patchy right lower lobe infiltrate and blunting of the right costophrenic angle. Electronically Signed: Spencer Choi MD at 10:24 EST , Chest CTA 10/31/21 10:32 IMPRESSION: Bilateral pleural effusions right greater than left with bibasilar infiltrates worse on the right side. Electronically Signed: Spencer Choi MD at 10:54 EST , Assessment & Plan Assessment/Plan (1) CHF exacerbation: PLAN: Patient is a 66-year-old gentleman in relatively good health presented with dyspnea dyspnea 1. Acute congestive heart failure ?EF unknown. Patient presented with exertional dyspnea. Chest x-ray obtained on admission demonstrated Bilateral pleural effusions right greater than left with bibasilar infiltrates worse on the right side patient has been admitted to regular nursing floor managed with fluid restriction strict input and output as well as daily weights. Patient was placed on Lasix and echo ordered for EF assessment 2. Recent history of tobacco dependence patient did quit 2 weeks prior to his admission 3. DVT prophylaxis ?Lovenox Charges/Coding Visit Charges Inpatient E&M: 43979 Init Hosp L2
--- NOTE | 2021-10-31 12:21 | NURSING ---
PCU OBS KITTOE CHF NEW ONSET, DYSPNEA
[2021-10-31 13:02] LABS: Thyroid Stim Hormone (TSH) 1.44 uIU/mL (0.358-3.74)
--- NOTE | 2021-10-31 13:25 | CASEMGMT ---
FLIP UDBOIS Assessment: RN CM to room to meet with patient for initial transition planning/care coordination assessment. FLIP DUBOIS introduced self and role at [facility]. Patient voices understanding and consents to assessment at this time. Patient's Aubree Ibrahim present at bedside. Patient is pleasant, alert and oriented and answers all questions appropriately, sitting up on ER cart in no apparent distress. Care providers, pharmacy, and demographics verified/updated at this time. Admitting Dx: CHF PCP: Mazin Duran Specialists: Denies Preferred Pharmacy: [facility] Retail [facility] Insurance: [facility] Prescription Benefit: yes Living Will/HPOA: Patient denies having a living will or HPOA. LNOK: Aubree Ibrahim Living Arrangements: Patient lives with and daughter in two story house with no steps to enter the home. Patient states independent with ADLs prior to hospitalization. Patient is self-employed as a software programer. Smoking/ETOH: Patient reports he quit smoking 2 weeks ago, admits to ETOH use (wine) a couple times a month Transportation: Patient drives self and denies transportation concerns. DME/HHC/SNF: Patient denies having any DME in the home and denies need for DME at this time. Denies previous HHC or SNF stays. Patient has no concerns with going home at time of discharge. CM to follow for any discharge planning/needs. Patient voices no concerns/needs at this time. Advised patient and to ask for CM if any questions/concerns/needs arise. Voices understanding. Plan: home
[2021-10-31] MEDS: Furosemide 40 MG/4 ML Vial IV ×2 (14:13→21:42)
[2021-10-31 14:34] LABS: Troponin-I HS 102 pg/mL (3.0-78.0)
[2021-10-31 17:14] LABS: Troponin-I HS 97 pg/mL (3.0-78.0)
[2021-10-31 20:32] LABS: Troponin-I HS 125 pg/mL (3.0-78.0)
[2021-10-31] MEDS: 0.9% Saline Lock 10 ML Syringe IV (21:42)
[2021-11-01] VITALS (7 sets, daily range): BP systolic 115–135; BP diastolic 73–89; PULSE 72–103; RESP 16–18; TEMP 36.4–37.1; O2SAT 93–94
--- NOTE | 2021-11-01 00:36 | EKG12_ITS ---
Test Reason : CP Blood Pressure : / mmHG Vent. Rate : 094 BPM Atrial Rate : 094 BPM P-R Int : 142 ms QRS Dur : 120 ms QT Int : 386 ms P-R-T Axes : 070 059 148 degrees QTc Int : 482 ms Sinus rhythm with frequent Premature ventricular complexes Left ventricular hypertrophy with QRS widening and repolarization abnormality Abnormal ECG Confirmed by HEMA BLUM, KAPIL ([id number]), online content editor EDSON REN ([id number]) on 11/03/2021 1:52:44 PM Referred By: MARION Confirmed By:KAPIL GARRIDO MD
--- NOTE | 2021-11-01 00:57 | EKG12_ITS ---
Test Reason : EKG CHANGES Blood Pressure : / mmHG Vent. Rate : 090 BPM Atrial Rate : 090 BPM P-R Int : 142 ms QRS Dur : 120 ms QT Int : 404 ms P-R-T Axes : 065 052 157 degrees QTc Int : 494 ms Sinus rhythm with frequent Premature ventricular complexes Left atrial enlargement Left ventricular hypertrophy with QRS widening and repolarization abnormality Abnormal ECG Confirmed by HEMA BLUM, KAPIL ([id number]), editorial director EDSON REN ([id number]) on 11/02/2021 8:28:19 AM Referred By: NEAL Confirmed By:KAPIL GARRIDO MD
--- NOTE | 2021-11-01 00:58 | EKG12_ITS ---
Test Reason : EKG CHANGES Blood Pressure : / mmHG Vent. Rate : 087 BPM Atrial Rate : 087 BPM P-R Int : 146 ms QRS Dur : 120 ms QT Int : 402 ms P-R-T Axes : 066 064 188 degrees QTc Int : 483 ms Sinus rhythm with occasional Premature ventricular complexes Left atrial enlargement Left ventricular hypertrophy with QRS widening and repolarization abnormality Abnormal ECG Confirmed by HEMA BLUM, KAPIL ([id number]), sports editor EDSON REN ([id number]) on 11/02/2021 8:28:35 AM Referred By: NEAL Confirmed By:KAPIL GARRIDO MD
[2021-11-01] MEDS: 0.9% Saline Lock 10 ML Syringe IV ×3 (05:11→21:34)
[2021-11-01] MEDS: Furosemide 40 MG/4 ML Vial IV ×3 (05:11→21:34)
[2021-11-01 06:53] LABS: Absolute Lymphocyte Count 2.14 X10^3/uL (0.83-4.51); Absolute Neutrophil Count 5.5 X10^3/uL (2.0-7.7); Basophil# 0.04 X10^3/uL; Basophil% 0.5 % (0-1); Eosinophil# 0.26 X10^3/uL; Hematocrit 47.2 % (40-54); Hemoglobin 16.7 g/dL (13.0-16.5); Lymphocyte # 2.14 X10^3/ul (0.83-4.51); Lymphocyte % 24.4 % (19-41); Mean Corp Hgb Conc 35.4 g/dL (32-36); Mean Corpuscular Hgb 31.1 pg (27.0-32.0); Mean Corpuscular Volume 87.9 fL (80-94); Mean Platelet Vol. 11.2 fl (6.2-12.0); Monocyte# 0.81 X10^3/uL; Monocyte% 9.2 % (0-10); NRBC Flagged by Analyzer 0 % (0-5); Neutrophil % 62.7 % (47-70); Platelet Count 268 K/mm3 (150-450); RBC Distribution Width CV 13.8 % (11.6-14.6); RBC Distribution Width SD 44.6 fl (35.1-43.9); Red Blood Count 5.37 M/mm3 (4.6-6.2); White Blood Count 8.8 K/mm3 (4.4-11.0)
[2021-11-01 07:31] LABS: BUN 20 mg/dL (7-18); Creatinine, Serum 0.95 mg/dL (0.70-1.30); EST Glomerular Filtration Rate 85 mL/min (>60); Estimated Creatinine Clearance 75.78 ml/min; Glucose 93 mg/dL (74-106)
[2021-11-01 07:32] LABS: Anion Gap 7 (5-15); BUN/Creat Ratio 21.1 RATIO (10-20); Calcium,Total 8.6 mg/dL (8.5-10.1); Chloride 104 mmol/L (98-107); Est Glom Filt Rate - Afr Amer 103 mL/min (>60); Magnesium 2.1 mg/dL (1.6-2.6); Phosphorus 2.9 mg/dL (2.5-4.9); Potassium 3.3 mmol/L (3.5-5.1); Sodium Level 138 mmol/L (136-145); Troponin-I HS 150 pg/mL (3.0-78.0)
--- NOTE | 2021-11-01 09:43 | CASEMGMT ---
According to the [facility] website, the following are in-network tertiary facilities: [facility], [facility], [facility], [facility], [facility], [facility], [facility], [facility], and . Karen CASTELAN CM
--- NOTE | 2021-11-01 11:57 | PCM.PN.HOSP ---
Subjective Subjective Patient admitted with progressive shortness of breath admitted to monitored bed for subsequent management. Patient underwent a 2D echo EF was estimated to be less than 10% with the presence of ventricular thrombus. Case discussed with cardiology patient started on systemic anticoagulation with heparin pending cardiology evaluation Objective Data Objective Data Vital Signs: Vital Signs Temp Pulse Resp BP Pulse Ox 97.5 F L 91 18 115/73 93 11/01/21 09:07 11/01/21 09:07 11/01/21 09:07 11/01/21 09:07 11/01/21 09:07 Oxygen Delivery Method Room Air Weight: 68.2 kg Body Mass Index (BMI) 21.6 Intake & Output: Intake and Output for Last 24 Hours 10/30/21 10/31/21 11/01/21 23:59 23:59 23:59 Intake Total 1200 / 1200 Output Total 1750 / 2850 1825 / 1825 Balance -550 / -1650 -1825 / -1825 Lab / Micro Data Result Diagrams: 11/01/21 06:15 11/01/21 06:15 Labs: Laboratory Results - last 24 hr 10/31/21 09:35: COVID-19 ([facility]) Not Detected 10/31/21 09:35: TSH 1.44 10/31/21 14:03: Troponin I High Sens 102 H 10/31/21 16:24: Troponin I High Sens 97 H 10/31/21 19:45: Troponin I High Sens 125 H* 11/01/21 06:15: WBC 8.8, RBC 5.37, Hgb 16.7 H, Hct 47.2, MCV 87.9, MCH 31.1, MCHC 35.4, RDW Std Deviation 44.6 H, RDW Coeff of Danilo 13.8, Plt Count 268, MPV 11.2, Immature Gran % (Auto) 0.200, Neut % (Auto) 62.7, Lymph % (Auto) 24.4, [place] % (Auto) 9.2, Eos % (Auto) 3.0, Baso % (Auto) 0.5, Absolute Neuts (auto) 5.5, Absolute Lymphs (auto) 2.14, Nucleated RBC % 0 11/01/21 06:15: Sodium 138, Potassium 3.3 L, Chloride 104, Carbon Dioxide 27.0, Anion Gap 7, BUN 20 H, Creatinine 0.95, Estim Creat Clear Calc 75.78, Est GFR (MDRD) Af Amer 103, Est GFR (MDRD) Non-Af 85, BUN/Creatinine Ratio 21.1 H, Glucose 93, Calcium 8.6, Phosphorus 2.9, Magnesium 2.1, Troponin I High Sens 150 H* Radiography Diagnostic Testing: Radiology Impression Echocardiogram 10/31/21 12:19 Interpretation Summary The study was technically difficult. Contrast injection was performed. Severely dilated left ventricle. Severe segmental systolic dysfunction (see wall motion). The estimated ejection fraction is 10 %. Mild papillary muscle dysfunction of the mitral valve. Moderate (2+) eccentric mitral valve insufficiency. Moderate (2+) eccentric tricuspid valve insufficiency. Mild diffuse aortic valve thickening. Mild focal aortic valve calcification. Right ventricular systolic pressure estimated to be 36 mmHg. There is evidence of diastolic dysfunction. Comment: 2D echocardiographic and contrast enhanced images obtained potentially compatible with a left ventricular apical thrombus. Ordering Physician: Mike Alicia Referring Physician: Mazin Duran MD Performed By: Madhu Moise RCS Physical Exam Narrative GENERAL: cooperative HEENT: Atraumatic; EYES; Anicteric, Normal Conjunctiva NECK; supple, normal thyroid, RESPIRATORY: Diminished to auscultation CARDIOVASCULAR: Regular S1 S2, GI: soft, normoactive bowel sounds, : No Renal angle tenderness; EXTREMITIES: No edema, no clubbing, MUSCULOSKELETAL: no muscle wasting NEURO: Awake; no lateralizing signs. SKIN: No Rash PSYCH; Flat affect Assessment & Plan Assessment/Plan (1) CHF exacerbation: PLAN: Patient is a 66-year-old gentleman in relatively good health presented with dyspnea dyspnea 1. Acute congestive heart failure with markedly reduced ejection fraction ?EF unknown. Patient presented with exertional dyspnea. Chest x-ray obtained on admission demonstrated Bilateral pleural effusions right greater than left with bibasilar infiltrates worse on the right side patient has been admitted to regular nursing floor managed with fluid restriction strict input and output as well as daily weights. Patient was placed on Lasix and echo ordered for EF assessment -11/01/2021; patient admitted with progressive shortness of breath admitted to monitored bed for subsequent management. Patient underwent a 2D echo EF was estimated to be less than 10% with the presence of ventricular thrombus. Case discussed with cardiology patient started on systemic anticoagulation with heparin pending cardiology evaluation 2. Severe cardiomyopathy ?Ischemic versus nonischemic including possible viral. Case was discussed with cardiology consult has been placed 3. Ventricular apical thrombus ?Patient started on systemic anticoagulation 4. Hypokalemia ?Due to use of diuretics corrected per protocol subsequent monitoring with daily BMPs ordered 5. Recent history of tobacco dependence patient did quit 2 weeks prior to his admission 6. DVT prophylaxis ?Patient on heparin Charges/Coding Visit Charges Inpatient E&M: 26817 Subs Hosp L3
[2021-11-01 12:02] LABS: International Normalized Ratio 1.2; Prothrombin Time (Protime)PT. 14.6 SECONDS (11.7-14.9)
[2021-11-01 12:03] LABS: Partial Thromboplast Time 30.1 Seconds (24.1-36.2)
[2021-11-01] MEDS: Heparin Injection (Vial) 5,000 UNIT/ML VIAL 4000 UNIT IV (12:31)
--- NOTE | 2021-11-01 18:35 | CON.PCM.CA_ITS ---
Assessment & Plan Assessment/Plan (1) New onset of congestive heart failure: PLAN: The patient does present with findings compatible with new onset congestive heart failure. Based upon his objective studies as far this appears to be systolic mediated. He has been treated medically with IV diuretics. He appears to be symptomatically improving. (2) Bilateral pleural effusion: PLAN: The patient does also have bilateral pleural effusions. Again he states he appears to be symptomatically improving with addition of IV diuretic therapy. (3) Cardiomyopathy: PLAN: The patient has been found to have an underlying cardiomyopathy. B ased upon his echocardiographic studies he has a markedly dilated left ventricle with severely diminished LV systolic function/LVEF (approximately 10%). It is unclear at this time whether this is related to an ischemic mediated versus a nonischemic mediated etiology. From a cardiac standpoint he continues to be monitored. He will continue medical therapy which include the addition of aspirin therapy, beta-alvarez therapy, continuation of his diuretic therapy, addition of afterload reducing therapy, and further cardiovascular risk factor evaluation of his lipid profile for the need for addition of lipid-lowering therapy. (4) Left ventricular apical thrombus: PLAN: The patient does have findings potentially compatible with a left ventricular apical thrombus. This appears to be secondary to his diminished LV systolic function. He has been placed on medical management with IV heparin at this time. Addt'l Comments Overall, from a cardiac standpoint, the patient will continue to be monitored. He will continue medical therapy/adjustment as tolerated. However, it was felt based upon the patient's clinical course and echocardiographic findings that he will need further cardiovascular diagnostic studies which will include diagnostic cardiac catheterization, etc. Based upon his clinical course and his echocardiographic findings it is also felt that he is a patient that should be considered for further cardiac evaluation at a major tertiary/quaternary heart center as he may need advanced heart failure evaluation/support, etc. The above was discussed and reviewed with the patient with his spouse present. They were agreeable to the aforementioned evaluation and care plan. The patient's case was discussed and reviewed with [facility] cardiovascular team. They agreed to accept the patient in transfer to the Heart Failure 1 service under the direction of Dr. Cosme for further evaluation and care. HPI Consult Data Date of Consult: 11/01/21 HPI Narrative HPI Narrative: NIKOLAS ADAM, is a 66 year old white male who presents for cardiovascular consultation based upon concerns of acute CHF and findings of an abnormal transthoracic echocardiogram compatible with an underlying cardiomyopathy (etiology uncertain at this time) with severely diminished LV systolic function/LVEF (approximately 10%) with potential associated left ventricular apical thrombus. The patient notes that over the last several months he has found himself to become more tired and fatigued with activities. However he has still been able to walk, sometimes up to several miles per day, yet at other times finding himself having to stop and rest. He states that over the last approximately 2 weeks he has noted progressive fatigue but also diminished appetite and increased shortness of breath/dyspnea and symptoms associated with orthopnea. He was evaluated by his PCP earlier this week. There was concerns that he may have had some form of underlying respiratory tract related illness. He was treated with oral antibiotic therapy. However he states this did not improve his symptoms and he subsequently presented to the hospital for further evaluation and care. At the time of his presentation, from a cardiac standpoint, he was noted to have a troponin I level elevated at 91. Over time this is increased to 150. He was noted to have an elevated BNP level of 2474.2. His ECG appeared to demonstrate evidence of an underlying sinus rhythm with left atrial enlargement and incompl ete left bundle branch block pattern. He underwent radiologic studies with a chest x-ray which demonstrated patchy right lower lobe infiltrate and blunting of the right costophrenic angle as well as a chest CTA which demonstrated no great vessel disease or thromboembolic disease, however, there were bilateral pleural effusions with the right being greater than the left with basilar infiltrates worse on the right side. He had a COVID-19 test which was negative. He was placed in the PCU for further evaluation and care. He was evaluated by internal medicine. He was treated with IV diuretic therapy with IV furosemide/Lasix. He subsequently underwent evaluation with a transthoracic echocardiogram. The results are noted below. He states since being in the hospital on diuretic therapy his breathing has improved. He states that last night he was able to place his bed in approximately a 45 degree position to sleep which is an improvement compared to prior to coming to the hospital. He notes in retrospect he feels that his chest has been somewhat heavy recently. He has had no obvious lower extremity peripheral pitting edema. He denies any palpitations. There is been no near-syncope or syncope. He states otherwise he feels he has been a healthy person. He does admit to being a smoker. He states he did stop smoking approximately 2 weeks ago when he began to feel ill. [facility] Medical History (Updated 11/01/21 @ 18:[address] Dorian Becerril MD) Cardiomyopathy Congestive heart failure (CHF) Former smoker Kidney stones Left ventricular apical thrombus Home Medications amoxicillin-pot clavulanate 1 tab PO BID 10/31/21 [History Last Taken 10/30/21] Allergy/AdvReac Type Severity Reaction Status Date / Time No Known Allergies Allergy Verified 10/31/21 09:12 Family History (Updated 10/31/21 @ 12:[address] Mike Alicia MD) Father Ruptured thoracic aortic aneurysm Mother Hepatic cancer Surgical History History of prostate surgery Social History Smoking Status: Former smoker ROS Constitutional Constitutional: Reports as per HPI Eyes Eyes: Reports as per HPI ENT HEENT: Reports as per HPI Cardiovascular Cardiovascular: Reports chest pain, dyspnea, fatigue and orthopnea Respiratory/Chest Respiratory/Chest: Reports dyspnea Gastrointestinal Gastrointestinal: Reports as per HPI Genitourinary Genitourinary: Reports as per HPI Musculoskeletal Musculoskeletal: Reports as per HPI Integumentary Integumentary: Reports as per HPI Neurologic Neurologic: Reports as per HPI Psychiatric Psychiatric: Reports as per HPI Physical Exam Const alert, oriented x3 and no apparent distress Orientation / Consciousness: awake HEENT normocephalic, head/scalp atraumatic and hearing grossly normal bilaterally Eyes PERRL, EOMs intact bilaterally and conjunctivae normal Neck full ROM, supple and no JVD Resp Auscultation: rales bilateral base Cardio regular rate, regular rhythm, S1 normal heart sound and S2 normal heart sound Heart Sounds: gallop S3 gallop, abnormal sounds and other GI normal to inspection, nondistended, normoactive bowel sounds Extremity no pedal edema Skin no rashes or lesions noted Neuro oriented x3, moves all extremities, no focal motor deficits and no sensory deficits noted Psych mental status grossly normal Risk Stratification Risk Stratification Applicable: Yes Age >/= 65: No >/= 3 CAD Risk Factors (HTN, HLD, DM, family hx of CAD, or current smoker): No Aspirin Use in the Past 7 Days: No Severe Angina (>/= episodes in 24 hours): No EKG ST Changes >/= 0.5mm: No Positive Cardiac Marker: Yes ROOPA Risk Stratification Score: 1 ROOPA % Risk: 5% Risk Procedure Criteria Type of Procedure Procedure Type: Elective Elective Risks - COVID COVID Risk Discussion: The surgeon/proceduralist and patient have discussed in detail the risk of exposure to and/or potential harm posed by the COVID-19 virus with having a surgery/procedure at this time versus the risk of delaying the surgery/procedure. It is not possible to know either the risk of delaying the surgery or procedure or chance of getting an infection with perfect accuracy, but a joint decision was made between the patient and the surgeon/proceduralist to proceed at this time with the scheduled surgery/procedure as indicated on the consent form. Objective Data Vital Signs: Vital Signs Temp Pulse Resp BP Pulse Ox 98.1 F 103 H 18 119/86 H 94 11/01/21 15:00 11/01/21 17:21 11/01/21 15:00 11/01/21 15:00 11/01/21 15:00 Oxygen Delivery Method Room Air Weight: 150 lb 5.684 oz Body Mass Index (BMI) 21.6 Intake & Output: Intake and Output for Last 24 Hours 10/30/21 10/31/21 11/01/21 23:59 23:59 23:59 Intake Total 1200 / 1200 Output Total 1750 / 2850 2425 / 2425 Balance -550 / -1650 -2425 / -2425 Lab / Micro Data Result Diagrams: 11/01/21 06:15 11/01/21 06:15 Labs: Laboratory Results - last 24 hr 10/31/21 19:45: Troponin I High Sens 125 H* 11/01/21 06:15: WBC 8.8, RBC 5.37, Hgb 16.7 H, Hct 47.2, MCV 87.9, MCH 31.1, MCHC 35.4, RDW Std Deviation 44.6 H, RDW Coeff of Danilo 13.8, Plt Count 268, MPV 11.2, Immature Gran % (Auto) 0.200, Neut % (Auto) 62.7, Lymph % (Auto) 24.4, [place] % (Auto) 9.2, Eos % (Auto) 3.0, Baso % (Auto) 0.5, Absolute Neuts (auto) 5.5, Absolute Lymphs (auto) 2.14, Nucleated RBC % 0 11/01/21 06:15: Sodium 138, Potassium 3.3 L, Chloride 104, Carbon Dioxide 27.0, Anion Gap 7, BUN 20 H, Creatinine 0.95, Estim Creat Clear Calc 75.78, Est GFR (MDRD) Af Amer 103, Est GFR (MDRD) Non-Af 85, BUN/Creatinine Ratio 21.1 H, Glucose 93, Calcium 8.6, Phosphorus 2.9, Magnesium 2.1, Troponin I High Sens 150 H* 11/01/21 11:40: PT 14.6, INR 1.2, APTT 30.1 Cardiology Labs/Tests 11/01/21 06:15: WBC 8.8, RBC 5.37, Hgb 16.7 H, Hct 47.2, MCV 87.9, MCH 31.1, MCHC 35.4, Plt Count 268, MPV 11.2, Immature Gran % (Auto) 0.200, Neut % (Auto) 62.7, Lymph % (Auto) 24.4, [place] % (Auto) 9.2, Eos % (Auto) 3.0, Baso % (Auto) 0.5, Absolute Neuts (auto) 5.5, Nucleated RBC % 0 11/01/21 06:15: Sodium 138, Potassium 3.3 L, Chloride 104, Carbon Dioxide 27.0, Anion Gap 7, BUN 20 H, Creatinine 0.95, Est GFR (MDRD) Af Amer 103, Est GFR (MDRD) Non-Af 85, BUN/Creatinine Ratio 21.1 H, Glucose 93, Calcium 8.6, Phosphorus 2.9, Magnesium 2.1 11/01/21 11:40: PT 14.6, INR 1.2, APTT 30.1 Rhythm: Sinus rhythm EKG: As noted above ECHO: As noted below Radiography Diagnostic Testing: Radiology Impression Echocardiogram 10/31/21 12:19 Interpretation Summary The study was technically difficult. Contrast injection was performed. Severely dilated left ventricle. Severe segmental systolic dysfunction (see wall motion). The estimated ejection fraction is 10 %. Mild papillary muscle dysfunction of the mitral valve. Moderate (2+) eccentric mitral valve insufficiency. Moderate (2+) eccentric tricuspid valve insufficiency. Mild diffuse aortic valve thickening. Mild focal aortic valve calcification. Right ventricular systolic pressure estimated to be 36 mmHg. There is evidence of diastolic dysfunction. Comment: 2D echocardiographic and contrast enhanced images obtained potentially compatible with a left ventricular apical thrombus. Ordering Physician: Mike Alicia Referring Physician: Mazin Duran MD Performed By: Madhu Moise RCS
[2021-11-01 18:45] LABS: Partial Thromboplast Time 58.5 Seconds (24.1-36.2)
[2021-11-01] MEDS: SACUBITRIL/VALSARTAN 24/26 MG TABLET 1 EACH PO (21:37)
[2021-11-01] MEDS: Carvedilol 3.125 MG TABLET PO (21:37)
[2021-11-02 01:43] LABS: Partial Thromboplast Time 50.7 Seconds (24.1-36.2)
--- NOTE | 2021-11-02 02:15 | NURSING ---
0215: Report given to physicians personal support worker and Ru RN at [facility], patient transferred via physicians ambulance with belongings.
--- NOTE | 2021-11-02 07:44 | PCM.DC.SUM ---
Providers Date of Admission: 10/31/21 Primary Care Physician: Dr. Mazin Duran MD Consultations 11/01/21 09:40 Consult: Cardiology Routine Consulting Provider: Dorian Becerril Reason for Consult: chf EMERGENT Consult: No MD Notified: Yes Date Notified: 11/01/21 Time Notified: 09:40 Method of Notification: Verbal Method of Consult:: In-Person Reason For Visit: CHF Diagnosis Discharge Diagnosis (1) New onset of congestive heart failure: Status: Acute Code(s): I50.9 - Heart failure, unspecified (2) Bilateral pleural effusion: Status: Acute Code(s): J90 - Pleural effusion, not elsewhere classified (3) Cardiomyopathy: Status: Acute Code(s): I42.9 - Cardiomyopathy, unspecified (4) Left ventricular apical thrombus: Status: Acute Code(s): I51.3 - Intracardiac thrombosis, not elsewhere classified Medications at Discharge Home Medications amoxicillin-pot clavulanate 1 tab PO BID 10/31/21 Hospital Course Procedures 2-D Echocardiogram Summary of Care Provided Minutes Spent on Discharge: 35 Hospital Course: . Acute congestive heart failure with markedly reduced ejection fraction ?EF unknown. Patient presented with exertional dyspnea. Chest x-ray obtained on admission demonstrated Bilateral pleural effusions right greater than left with bibasilar infiltrates worse on the right side patient has been admitted to regular nursing floor managed with fluid restriction strict input and output as well as daily weights. Patient was placed on Lasix and echo ordered for EF assessment -11/01/2021; patient admitted with progressive shortness of breath admitted to monitored bed for subsequent management. Patient underwent a 2D echo EF was estimated to be less than 10% with the presence of ventricular thrombus. Case discussed with cardiology patient started on systemic anticoagulation with heparin pending cardiology evaluation -Based on the patient's low EF. Dr. Becerril with cardiology did arrange for patient to be transferred to the heart failure services at [facility] on 11/01/2021 2. Severe cardiomyopathy ?Ischemic versus nonischemic including possible viral. Case was discussed with cardiology consult has been placed 3. Ventricular apical thrombus ?Patient started on systemic anticoagulation 4. Hypokalemia ?Due to use of diuretics corrected per protocol subsequent monitoring with daily BMPs ordered 5. Recent history of tobacco dependence -patient did quit 2 weeks prior to his admission 6. DVT prophylaxis ?Patient on heparin Physical Exam Narrative GENERAL: cooperative HEENT: Atraumatic; EYES; Anicteric, Normal Conjunctiva NECK; supple, normal thyroid, RESPIRATORY: Diminished to auscultation CARDIOVASCULAR: Regular S1 S2, GI: soft, normoactive bowel sounds, : No Renal angle tenderness; EXTREMITIES: No edema, no clubbing, MUSCULOSKELETAL: no muscle wasting NEURO: Awake; no lateralizing signs. SKIN: No Rash PSYCH; Flat affect Weight / BMI Weight Weight: 68.2 kg Body Mass Index (BMI) 21.6 ABG / Lab / Microbiology Data Result Diagrams: 11/01/21 06:15 11/01/21 06:15 Laboratory: Laboratory Results - last 24 hr 11/01/21 11:40: PT 14.6, INR 1.2, APTT 30.1 11/01/21 18:28: APTT 58.5 H 11/02/21 01:13: APTT 50.7 H Radiography Diagnostic Testing: Radiology Impression Echocardiogram 10/31/21 12:19 Interpretation Summary The study was technically difficult. Contrast injection was performed. Severely dilated left ventricle. Severe segmental systolic dysfunction (see wall motion). The estimated ejection fraction is 10 %. Mild papillary muscle dysfunction of the mitral valve. Moderate (2+) eccentric mitral valve insufficiency. Moderate (2+) eccentric tricuspid valve insufficiency. Mild diffuse aortic valve thickening. Mild focal aortic valve calcification. Right ventricular systolic pressure estimated to be 36 mmHg. There is evidence of diastolic dysfunction. Comment: 2D echocardiographic and contrast enhanced images obtained potentially compatible with a left ventricular apical thrombus. Ordering Physician: Mike Alicia Referring Physician: Mazin Duran MD Performed By: Madhu Moise RCS Meaningful Use Info Meaningful Use Diagnoses (Choose all that apply): CHF CHF CHACORTA/ARB ordered at discharge?: Yes Documented LVEF (%): 10 Discharge Plan Admission Admit Date/Time: 10/31/21 12:14 Attending Provider: Mike Alicia Primary Care Provider: Mazin Duran Consulting Providers: Dorian Becerril Discharge Orders/Prescriptions Prescriptions: No Action amoxicillin-pot clavulanate 875-125 mg tablet 1 tab PO BID RF: 0 Referrals / Follow Up: Mazin Duran MD [Primary Care Provider] - Disposition Disposition (needs filled in before D/C Order can be placed): Acute Care Hospital Charges/Coding Visit Charges Inpatient E&M: 32450 Disch Hosp
== END 2021-11-02 02:35 | disposition short-term general hospital (02) | DRG 292 ==
LOC: ED 09:55 → PCU 12:28
PROVIDERS: Admitting Provider Internal Medicine; Emergency Provider Emergency Medicine; PCP Family Medicine; Visit Provider Internal Medicine
DX: I50.21 Acute systolic (congestive) heart failure (principal); I42.9 Cardiomyopathy, unspecified; I51.3 Intracardiac thrombosis, not elsewhere classified; M79.10 Myalgia, unspecified site; I44.7 Left bundle-branch block, unspecified; E87.6 Hypokalemia; Z87.891 Personal history of nicotine dependence
CPT/HCPCS: 36415; 71045; 71275; 80048; 83735; 83880; 84100; 84443; 84484; 85025; 85379; 85610; 85730; 87635; 93005; 93306; 94640; 97802; 99251; 99285; J7040; Q9957; Q9967; A4216; C8929; G0463; J1940; U0003; U0005

== ENCOUNTER 2021-11-16 10:10 | Outpatient (CLI) | payer OTHER, SELFPAY ==
[2021-11-16 12:35] LABS: International Normalized Ratio 1.3; Prothrombin Time (Protime)PT. 15.3 SECONDS (11.7-14.9)
== END 2021-11-16 23:59 | disposition home or self-care (01) ==
LOC: MFPLAB 10:11
PROVIDERS: PCP Family Medicine; Referring Provider Family Medicine; Visit Provider Family Medicine
DX: I26.99 Other pulmonary embolism without acute cor pulmonale (principal)
CPT/HCPCS: 36415; 85610

== ENCOUNTER 2021-11-22 15:55 | Outpatient (RCR) | payer OTHER, SELFPAY ==
[2021-11-22 16:10] LABS: INR Fingerstick 1.6; Prothrombin Time Fingerstick 19.8 SEC (11.7-14.9)
== END 2021-12-07 18:00 | disposition home or self-care (01) ==
LOC: MTLAB 15:55
PROVIDERS: PCP Family Medicine; Referring Provider Family Medicine; Visit Provider Family Medicine
DX: I26.99 Other pulmonary embolism without acute cor pulmonale (principal)
CPT/HCPCS: 36416; 85610

== ENCOUNTER 2021-11-30 12:39 | Outpatient (CLI) | payer OTHER, SELFPAY ==
--- NOTE | 2021-11-30 12:46 | BD_ITS ---
STUDY: DUAL ENERGY X-RAY ABSORPTIOMETRY / DXA REASON FOR EXAM: Male, 66 years old. I42.9. Preheart transplant. TECHNIQUE: Bone Mineral Density (BMD) measurements of lumbar spine and bilateral hips were obtained. COMPARISON: None. FINDINGS: Lumbar Spine (L1-L4): g/cm2 (0.965) / T-score (-1.4) / Z-score (-0.6) Findings are suggestive of osteopenia with a low fracture risk. Left Femur Total: g/cm2 (1.083) / T-score (0.3) / Z-score (0.8) Left Femoral Neck: g/cm2 (0.838) / T-score (-0.7) / Z-score (0.3) Right Femur Total: g/cm2 (0.954) / T-score (-0.5) / Z-score (0.0) Right Femoral Neck: g/cm2 (0.837) / T-score (-0.7) / Z-score (0.3) BD/Dexa Bone Density Study IMPRESSION: The patient is considered normal as outlined below according to World [employer] Organization (WHO) criteria with a low fracture risk. Reference Information: The T-score is the number of standard deviations above or below the standard which is normal for young adults at their peak bone mineral density. The World Health Organization (WHO) interprets the T-scores as follows: Above -1 Normal bone density Between -1 and -2.5 Osteopenia Equal to / or below -2.5 Osteoporosis As a practical clinical guideline, osteopenia may be graded as follows: Mild -1 through -1.5 Moderate -1.6 through -2.0 Severe -2.1 through -2.4 The Z-score is the number of standard deviations above or below age-matched controls. A Z-score of less than -1.5 would be considered abnormal. References: 1. NIH Osteoporosis and Related Bone Diseases www osteo.org 2. International Society for Clinical Densitometry www iscd.org 3. National Osteoporosis Foundation www nof.org Electronically Signed: Spencer Choi MD at 15:31 EDT ,
== END 2021-11-30 23:59 | disposition home or self-care (01) ==
LOC: OPBD 12:40
PROVIDERS: PCP Family Medicine; Visit Provider Family Medicine
DX: Z01.818 Encounter for other preprocedural examination (principal); I42.9 Cardiomyopathy, unspecified; F17.200 Nicotine dependence, unspecified, uncomplicated
CPT/HCPCS: 77080

== ENCOUNTER → 2021-12-19 | Outpatient (CLI) | payer OTHER, SELFPAY ==
--- NOTE | 2021-12-19 08:04 | CR.ITP_ITS ---
Diagnosis - General Information Admitting Diagnosis: HFrEF 10% W/LIFE VEST DEVICE - PRE-HEART TRANSPLANT Secondary Diagnosis: LV THROMBUS, TRIPLE VESSEL CORONARY DISEASE, NSTEMI, ISCHEMIC CARDIOMYOPATHY, Personal Learning Style:: Audio/Visual, Written Barriers to Learning: Vision Impairment Stage of change r/t lifestyle modifications:: Action Gave educational material for:: Treating Heart Disease, Emotions & Heart Disease, Stress Management & Relaxation, Sleep Disorders & Heart Disease, How The Heart Works, What it means to have Heart Disease, How Coronary Artery Disease is Diagnosed, Heart Procedures, What Heart Medications Do, Risk Factors & Modifications, Living an Active Life, Nutrition - Education/Goals Individual Counseling: Initial Assessment: Nicotine/Smoking - SUPPORT PATIENT IN COMPLETE SMOKING CESSATION, Abnormal Cholesterol Levels, High Blood Pressure Cardiac Rehabilitation Goals: 1. Maintain the individual as the primary focus of care. 2. To improve the patient's quality of life. 3. Identification of cardiac risk factors and provide cardiac risk factor management. 4. Enhance the psychosocial status of the patient. 5. Reconditioning enough to allow the patient to resume customary activities. 6. Control symptoms of cardiac disease Personal Goals: Initial Assessment: Improve management of stress and emotions, Improve energy level, Participate in home exercise program, Get back to work, or to resume activities faster, Improve knowledge of cardiac disease, Improve muscl e strength and endurance, Improve diet and eating habits (eat healthier), Control risk factors (learn risk factor modification) Scale for measuring improvement of personal goals: Enter appropriate number in Comments. 2 = Unchanged. 3 = Slightly Better. 4 = Moderate Improvement. 5 = Met my Goal - Diagnosis & Disease Process Outcomes/Goals: Pt IDs own risk factors & lifestyle modifications by Session 10, Verbalizes symptoms of angina & response by session 3., Pt independently manages Plan/Interventions: Assist Pt to ID & engage in lifestyle modification to reduce CVD risk, Instruct on individual risk factors, Review symptoms of angina & emergency actions, Review secondary diagnosis & identify educational needs. - Safety Referral to Physical Therapy: No Referral to [facility] Case Management: No Assistive Devices:: None Exercise - Initial Assessment - Visit Date of Eval: 12/19/21 Session #:: 0 - PRE-CARDIAC REHAB EVALUATION Mets: Pre-: >5 METS for 30 minutes by discharge - Physician Prescribed Exercise Modalities: Treadmill, Airdyne, NuStep Frequency: 3x/week for 12 weeks [36 sessions] Intensity: 60-80% of age predicted maximum heart rate reserve Current METSs:: 2.0 Target Heart Rate:: REST +15 Resting Blood Pressure: 100/68 EKG Type: SINUS RHYTHM W/OCCASIONAL PVCs. - Outcomes & Goals Goals:: Verbalizes understanding of THR, RPE & goal METS by session 6, Documents in home exercise log/reports 30 min aerobic 5 day/wk by DC, Demonstrates accurate pulse taking by DC - Intervention & Plan Exercise Program Goals: Instruct on personal THR & RPE, Instruct on MET level & personal MET goal, Show patient to take own pulse /validate performance until accurate, Instruct on home exercise - Physical Activity Home Exercise Physical Activity - Home Exercise: Safe Exercise, Warm-up, Self-monitoring, Cool-Down, Home Exercise > 30 min Daily, Sitting Time <3 hours/daily - Outcomes & Goals Outcomes/Goals: Demonstrates correct Warm-up/exercise Cool-Down (S3) if = 2.5 METs, Verbalizes symptoms of exercise intolerance by Session 3 (S3), Demonstrate safe equipment use (S3) & follows exercise prescrition (6) - Intervention & Plan Plan/Intervention: Instruct warm-up & cool-down if exercising at > 2 METs, Instruct on symptoms of exercise intolerance & actions to take, Instruct & monitor on saf, Assess intial functional capacity & safety risk Nutrition - Initial Assessment - Program Goals Nutrition Program Goals: LDL <100 optimal. 100 - 129 Near optimal. 130 - 159 Borderline High. 160 - 189 High. Total Cholesterol <200 desirable. 200 - 239 Borderline High. >/= 240 High. HDL < 40 Low >/=60 High. Triglycerides <150 desirable. <199 optimal. VlDL 5 - 40. HgbA1C <7%. BMI <25 Patient has diagnosis of Hyperlipidemia (ICD E78)?: Yes - Visit Date of Assessment:: 12/19/21 Session #:: 0 - PRE-CARDIAC REHAB EVALUATION - Cholesterol/Lipids Triglycerides (mg/dL): 0 - NO RECENT LABS AVAILABLE Determine presence & major risk factors that modify LDL goal: Cigarette smoking - RECENTLY QUIT SMOKING-ABSTAINING, Hypertension or hypertensive medication, Family history of premature CHD in Male < 55 years: female <65 yearsFa, Age men > 45 years; women >/= 55 years Outcomes/Goals: Pt IDs own risk factors & lifestyle modifications by Session 10, Pt independently manages Intervention/Plan: Advocate for lipid panel cholesterol medication if applicable, Instruct on personal lipid levels & lipid goals/NCEP guidelines, Instruct on cholesterol - Diabetes (Other Core Measures) Diabetes Type: Not Applicable - Weight Mgt (Other Care) Not Applicable: Yes Height: 5 ft 10 in Weight:: 143 lb BMI: 20.5 Diagnosis Overweight/Obesity BMI> 30% ICD-10 E66: No Diagnosis High BMI/Morbid Obesity BMI> 35% ICD-10 Z68: No Outcomes/Goals: Pt sets, maintains & shows weight loss goal & trend during rehab Intervention/Plan: Instruct on ideal BMI & set weight loss goal w/patient - Healthy Eating Habits Will attend diet classes:: Yes Outcomes/Goals:: Consume diet rich in vegs,fruits,whole grain/high fiber,fish,lean meat, Limit sat/trans fats,cholesterol & added salts & sugars Intervention/Plan:: Assess current eating habits - Education Gave educational materials for:: Healthy eating Nutrition - 30-Day Assessment Nutrition - 60-Day Assessment Nutrition - 90-Day Assessment Nutrition - Final Assessment Medical - Initial Assessment - Visit Date of Eval: 12/19/21 Session #:: 0 - PRE-CARDIAC REHAB EVALUATION - Medication Compliance Preventative Medication(s):: Aspirin, Statin/lipid, Beta alvarez, Warfarin/Coumadin H/O mental health issues: depression, anxiety, or addiction?: No Doesn?t believe in the benefits of treatment?: No Believes medications are unnecessary or harmful?: No Has a concern about medication side effects?: No Expresses concern over the cost of medications?: No Outcomes/Goals: Verbalizes medications,desired effect & common side effects @ DC, Pt self-reports following medication regimen, Keeps card in wallet w/medications listed by DC Interventions/plans: Instruct on medication effects & side effects, Review medication list w/patient every two weeks, Instruct importance of taking meds as ordered & assist problem solving - Tobacco Use Tobacco Use: Cigarettes How long ago did you quit using tobacco products?: Less than 6 months ago Do you use smokeless tobacco?: No Outcomes/Goals: Smoking cessation achieved or maintained by discharge - Hypertension Hypertension Diagnosis:: Hypertension ICD-10 I10 Resting Blood Pressure:: 100/68 [place] [employer] Hypertension Guidelines: [place] [employer] Hypertension Guidelines. Normal BP Less than 120/80. Elevated BP 120/80. Hypertension Stage 1: BP 130-139/80-89. Hypertesnion Stage 2: BP 140 or higher/90 or higher. Hypertension Crisis: BP higher than 180/120 Outcomes/Goals: Able to verbalize/achieve optimal blood pressure <130/80, Incorporates diet changes & exercise for blood pressure control by DC Interventions/plan: Instruct on optimal blood pressure, hypertension & medications, Instruct on effects of sodium, alcohol, stress, exercise &hypertension - Tobacco Cessation Referral Smoking Cessation Referral:: No Individual Education/Counseling:: No Education Schedule Given:: Yes Medical- 30-Day Assessment Medical- 60-Day Assessment Medical- 90-Day Assessment Medical - Final Assessment Psychosocial - Initial Assess - VIsit Date of Eval: 12/19/21 Session #:: 0 - PRE-CARDIAC REHAB EVALUATION Not Applicable: Yes History of previous Mental disease:: No - Psychosocial Test Tool Used:: [employer] Jesse QOL Cardiac, PHQ-9 Questionnaire phq-9 Severity: Severity. 1-4 Minimal Depression. 5-9 Mild Depression. 10-14 Moderate Depression. 15-19 Moderately Sever Depression. 20-27 Severe Depression. Rule: - Referral to Behavioral Health PS - Interventions: Yes Attend Stress Management Classes, No Referral to Behavioral Health if PHQ-9 score >9:, No Referral to [facility], No Referral to Physician if PHQ-9 if score is 5-9: - Outcomes/Goals: See list Psychosocial Outcomes/Goals:: ID's personal stressors & 2 strategies to manage stress by discharge - Intervention/Plan: See List Interventions/Plan:: Assess stressors,coping strategies & signs of derpression on admission, Instruct/assist pt to develop coping & personal stress Mgt strategies, Instruct patient to recognize signs & symptoms of depression, Instruct patient to recog Psychosocial - 30-Day Assess Psychosocial - 60-Day Assess Psychosocial - 90-Day Assess Psychosocial - Final Assessmen Patient Health Questionnaire Initial Assessment 1. Little interest or pleasure in doing things: Not at all 2. Feeling down, depressed, or hopeless: Not at all 3. Trouble falling or staying asleep, or sleeping too much: Not at all 4. Feeling tired or having little energy: Not at all 5. Poor appetite or overeating: Not at all 6. Feeling bad about yourself -- or that you are a failure or have let yourself or your family down: Not at all 7. Trouble concentrating on things, such as reading the newspaper or watching television: Not at all 8. Moving or speaking so slowly that other people could have noticed. Or the opposite - being so fidgety or restless that you have been moving around a lot more than usual: Not at all 9. Thoughts that you would be better off , or of hurting yourself in some way: Not at all How difficult have these problems made it for you to do your work, take care of things at home, or get along with other people?: Not difficult at all Total Score: 0 ANN-Q SV Test - Statements CAD is a disease of the arteries in the heart: False Examples of risk factors for heart disease: True Angina is chest pain or discomfort: I Don't Know The benefits of resistance training include: True Eating more meat and dairy products: False Anti-platelet medications such as aspirin are important: True The only effective way to manage stress: False An exercise warm-up slowly increases heart rate: True Prepared, processed foods usually have high sodium: True Depression is common after a heart attack: True The statin medications lower cholesterol: I Don't Know To control blood pressure, lower the amount of sodium: True If someone gets chest discomfort during walking: False Transfats are partially hydrogenated vegetable oils: True Sleep apnea that is not treated increases the risk: I Don't Know To control cholesterol, one should become a vegetarian: False Someone knows if he/she is exercising at the right level: True Diabetes cannot be prevented with exercise & health eating: I Don't Know Stress is a large risk for heart attack: True A diet that can help lower blood pressure is rich in: True - Total Score Total Correct Responses: 16 Self-Efficacy Initial Assessment We would like to know how confident you are in doing certain activities. Please select your confidence level for:: Select your confidence level for the following using the scale 1-10 where 1 is not at all confident and 10 is totally confident. Your score is the average of all 6 responses. Fatigue: How confident are you that you can keep the fatigue caused by your disease from interfering with the things you want to do? Select Number: 3 Physical Discomfort or Pain: How confident are you that you can keep the physical discomfort or pain of your disease from interfering with the things you want to do? Select Number: 3 Emotional Distress: How confident are you that you can keep the emotional distress caused by your disease from interfering with the things you want to do? Select Number: 10 Other Symptoms or Health Problems: How confident are you that you can keep other symptoms or health problems from interfering with the things you want to do? Select Number: 7 Different Tasks and Activities: How confident are you that you can do the different tasks and activities needed to manage your health condition so as to reduce your need to see a doctor? Select Number: 7 Medication: How confident are you that you can do things other than just taking medication to reduce how much your illness affects your everyday life? Select Number: 10 Total Score:: 6 Nutrition Survey - Nutrition Survey Initial Have you lost >10 lbs over the past 2 months without trying?: Yes Are you following a special diet at home for diabetes, low fat, or low salt?: Yes Are you interested in meeting with a dietitian for help understanding your diet?: Yes Do you eat less than 3 meals a day?: No Do you eat fatty meats (santos, sausage, ribs, etc), fried foods, desserts, large amounts of salad dressings, margarine, butter, or cheese most days?: No Do you have food allergies? [Enter types in comment field]: No Do you eat in restaurants more than 3 times a week?: No Do you season food with salt, seasoning salt, or garlic salt?: No Do you used canned, boxed, frozen meals, or soups, seasoning packets?: No Total Score:: 3
--- NOTE | 2021-12-19 08:05 | PCM.CR.HP2 ---
CR - History & Physical - General Arrival date:: 12/19/21 Arrival time:: 08:10 Date of Referral:: 11/17/21 Date of CR Evaluation:: 12/19/21 Referring Physician: DR. KAPIL GARRIDO Primary Diagnosis: HFrEF <10% w/ LIFE VEST DEVICE - History of Present Cardiac Event Onset Date: Enter Onset Date of cardiac illnesses in Comment field below Acute Myocardial Infarction within 12 months:: Yes - NSTEMI mild and not really noticed had the [place]. Heart Failure EF <35%:: Yes - 10% LIFE VEST DEVICE - PRE-HEART TRANSPLANT. Weight daily lasix 20mg PRN # Type of Symptoms:: SEP/OCT JUST NOT FEELING RIGHT, SHORT OF BREATH. CAME TO ER STARTED ON ANTIBIOTIC SENT HOME, CAME BACK TO ER WHEN SHORTNESSOF BREATH WORSENED. ADMITTED WITH SPONTANEOUS ACUTE ON CHRONIC HEART FAILURE HFrEF 10% NOW ON LIFE VEST. Now on Heart transplant program hopefully achieved in May 2022. Just recently quit smoking and has to be smoke free 6 months prior. Interventions with present event:: Admitted to [facility], exam considered LVAD but went with Life Vest instead. Were there any complications?: BILATERAL PLEURAL EFFUSION, LV THROMBUS - Sleep Disorder Evaluation Hx of Sleep Apnea: Yes Do you snore loudly (louder than talking or can be heard through closed doors)?: No Do you often feel tired/ fatigued/ sleepy during daytime?: Yes - mostly due to recent medical condition Has anyone observed you stop breathing during sleep?: No History of Hypertension (for STOP score): No STOP Results: Negative - Medications Home Medications: Ambulatory Orders Medication Instructions Recorded aspirin 81 mg tablet,delayed 81 mg PO DAILY 11/13/21 release atorvastatin 40 mg tablet 40 mg PO QHS 11/13/21 furosemide 20 mg tablet 20 mg PO DAILY PRN 11/13/21 hydralazine 10 mg tablet 10 mg PO TID 11/13/21 isosorbide dinitrate 10 mg tablet 5 mg PO TID tab 11/13/21 warfarin 3 mg tablet 3 mg PO DAILY 11/13/21 losartan 25 mg tablet 12.5 mg PO DAILY tab 12/13/21 enoxaparin 80 mg SUBCUT Q12H 12/19/21 - Allergies Allergies/Adverse Reactions: Allergies No Known Allergies Allergy (Verified 12/13/21 10:51) Advanced Directives - Advanced Directives Power of Siding Installer: No Living Will: No Advance Directives Information Provided: Yes Advance Directives on File: No DNR Order?:: No - MOLST See MOLST form: No Past Medical History - Covid-19 Screening Fever: No Unexplained muscle aches: No Current respiratory symptoms: No Upper respiratory infections symptoms: No Gastro-intestinal symptoms: No Blq-Oimj-Efyopc symptoms: No Has tested positive for COVID-19 in last 30 days: No Date of testin12/19/21 - Two vaccinations and the Booster Had contact w/person w/symptoms or Covid-19 (+) last 14 days: No Has High Risk Exposures ID'd by Health dept/Inf Control team: No 65 years or older:: No Lives in Assisted Living facility:: No Has a serious heart condition:: Yes Immunocompromised:: Yes Severely obese (Body Mass Index of 40 or higher):: No Diabetic:: No Has chronic kidney disease undergoing dialysis:: No Has liver disease:: Yes - Past Medical Illness Medical History: Past Medical History (Last Reviewed 12/13/21 @ 10:56 by Darlene Aguilar) Atherosclerotic heart disease of [place] coronary artery without angina pectoris I25.10 Cardiomyopathy I42.9 Congestive heart failure (CHF) I50.9 Former smoker Z87.891 Heart failure with reduced ejection fraction I50.20 History of non-ST elevation myocardial infarction (NSTEMI) I25.2 Ischemic cardiomyopathy I25.5 Kidney stones N20.0 Left ventricular apical thrombus I51.3 - Past Surgical History Surgical History: Past Surgical History (Last Reviewed 12/13/21 @ 10:56 by Darlene Aguilar) History of prostate surgery Z98.890 - Family History Summary Family History: Family History (Last Reviewed 12/13/21 @ 10:56 by Darlene Aguilar) Father Ruptured thoracic aortic aneurysm Mother Hepatic cancer Grandfather Myocardial infarction Social History - Smoking History Smoking Status: Former smoker Hx Tobacco Use: No Hx Smoking Exposure: No - Alcohol Use Alcohol Usage: No - Substance Abuse Hx Substance Use: No - Occupation Occupation (List type of work in comments):: Employed Hours worked per day:: 6 - Hobbies, Recreation, Social Activities Hobbies: Sports - Golfer, Reading, Exercise - Run Bike Swim, Other Recreational Activities: I am able to engage in most, but not all activities Social Environment - Status Marital Status: - Current Living Arrangements Living Environment:: Spouse - Children How many children do you have?: 2 Do any of your children live nearby?: Yes - Safety Do you feel safe in your surroundings?: Yes - Assistance Do you need any assistance at home?: No - very good (excellent) support system Review of Systems - Review of Systems Hints: Right click = Denies (Slash). Left click = Reports ([place]obuk) Review of Present Symptoms: Reports: Shortness of Breath with Exertion, Fatigue, Heart Arrhythmia/Irregularities - Sinus rhythm with occasional PVCs., Appetite - Normal, Appetite - Special Diet - Low Sodium, completely changed diet. wants patient to maintain weight around 150# range. Weight daily to monitor sudden fluid gain and uses 20mg lasix PRN to reduce fluid accumulation., Sleep - Normal. Denies: Shortness of Breath at Rest, Dizziness/Lightheadedness, Sexual Changes - Pain Is Patient Pain Free?: Yes Pain Location: none Pain Level: 0/10 Risk Factor Assessment - Chief Complaint Chief Complaint: 66 yr old male patient of Dr.. Garrido who was recently sent to [facility] for spontaneuos CHF and treated by Dr. Sammy Cosme @ [facility]. His hfRef is 10% and was then considered for a LVAD pump, but was placed on a Life Vest Device. THe patient has been placed on the HEart Transplant list at [facility] and hopefully around May 2022 will have a transplant. - Vital Signs Temperature: 97.8 F Respiratory Rate: 16 Pulse Ox: 96 Blood Pressure: 100/68 - Pulse Pulse Rate: 74 - Hypertension Blood Pressure Sitting - Left Arm: 100/68 - Obesity Height: 5 ft 11 in Weight:: 150 lb Weight in Pounds: 150.0 lbs Weight Source: Stated by Patient Body Mass Index (BMI): 20.9 Nutritional Referral for Obesity: No - Physical Inactivity Physical Inactivity: None - Risk Stratification Risk Guidelines: Lowest Risk: Risk Factor for Smoking, Risk Factor for Dyslipidemia, Risk Factor for Diabetes, Risk Factor for Obesity, Risk Factor for Hypertension, Risk Factor for Sedentary Lifestyle, Risk Factor for Depression - Family History Family History: Family History (Last Reviewed 12/13/21 @ 10:56 by Darlene Aguilar) Father Ruptured thoracic aortic aneurysm Mother Hepatic cancer Grandfather Myocardial infarction Motivation - Motivation to Participate On a scale of 1 to 10, how prepared are you to commit to attending program?: 10 What do you see as barriers to successfully being able to complete the program?: none What do you see as the benefits of succesfully completing the program? In other words, what do you hope to get out of participating in the program?: Healthier, stronger, increase weight in a healthy way. Are there issues you are dealing with that will interfere with completing the program?: none Do you have a spouse or signficant other, family or friends who will help support you to complete the program?: yes
[2021-12-19 08:27] VITALS: BP 100/68; BMI 20.5
[2021-12-19 08:48] VITALS: BP 100/68; PULSE 74; RESP 16; TEMP 36.6; O2SAT 96; BMI 20.9
== END | disposition home or self-care (01) ==
LOC: CR 08:00
PROVIDERS: PCP Family Medicine; Visit Provider Internal Medicine Cardiovascular Disease
DX: I50.20 Unspecified systolic (congestive) heart failure (principal); Z68.21 Body mass index [BMI] 21.0-21.9, adult

== ENCOUNTER 2022-01-05 08:00 | Outpatient (RCR) | payer OTHER, SELFPAY ==
[2021-12-19 08:27] VITALS: BMI 20.5
== END 2022-01-06 23:59 ==
LOC: CR 08:00
PROVIDERS: PCP Family Medicine; Visit Provider Internal Medicine Cardiovascular Disease
DX: I50.20 Unspecified systolic (congestive) heart failure (principal); I25.2 Old myocardial infarction
CPT/HCPCS: 93798

== ENCOUNTER 2022-01-19 08:00 | Outpatient (RCR) | payer OTHER, SELFPAY ==
[2021-12-19 08:27] VITALS: BMI 20.5
--- NOTE | 2022-01-15 07:11 | CR.ITP_ITS ---
Diagnosis Exercise - 30-day Assessment - Visit Date of Eval: 01/15/22 Session #:: 10 - Physician Prescribed Exercise Modalities: Treadmill, Rower, Airdyne Frequency: 3x/week for 12 weeks [36 sessions] Intensity: 60-80% of age predicted maximum heart rate reserve Current METSs:: 4.0 Target Heart Rate:: 96-110 Current RPE:: 11-12 Maximum Excercise HR:: 114 Resting Blood Pressure: 86/52 Maximum Exercise Blood Pressure: 88/38 EKG Type: NSR to sinus tach w/PVCs T wave inversion, BBB, Quadrigeminy Current Physical Activity or Exercising minutes: 39 - Outcomes & Goals Goals:: Verbalizes understanding of THR, RPE & goal METS by session 6, Documents in home exercise log/reports 30 min aerobic 5 day/wk by DC, Demonstrates accurate pulse taking by DC - Intervention & Plan Exercise Program Goals: Instruct on personal THR & RPE, Instruct on MET level & personal MET goal, Show patient to take own pulse /validate performance until accurate, Instruct on home exercise - 30-day Reassessments 30 day Reassessments:: Progressing - Physical Activity Home Exercise Physical Activity - Home Exercise: Safe Exercise, Warm-up, Self-monitoring, Cool-Down, Home Exercise > 30 min Daily, Sitting Time <3 hours/daily - Outcomes & Goals Outcomes/Goals: Demonstrates correct Warm-up/exercise Cool-Down (S3) if = 2.5 METs, Verbalizes symptoms of exercise intolerance by Session 3 (S3), Demonstrate safe equipment use (S3) & follows exercise prescrition (6) - Intervention & Plan Plan/Intervention: Instruct warm-up & cool-down if exercising at > 2 METs, Instruct on symptoms of exercise intolerance & actions to take, Instruct & monitor on saf, Assess intial functional capacity & safety risk - 30-day Reassessments 30 day Reassessments:: Progressing Nutrition - Initial Assessment Nutrition - 30-Day Assessment - Program Goals Nutrition Program Goals: LDL <100 optimal. 100 - 129 Near optimal. 130 - 159 Borderline High. 160 - 189 High. Total Cholesterol <200 desirable. 200 - 239 Borderline High. >/= 240 High. HDL < 40 Low >/=60 High. Triglycerides <150 desirable. <199 optimal. VlDL 5 - 40. HgbA1C <7%. BMI <25 Patient has diagnosis of Hyperlipidemia (ICD E78)?: Yes - Visit Date of Assessment:: 01/15/22 Session #:: 10 - Cholesterol/Lipids Determine presence & major risk factors that modify LDL goal: Hypertension or hypertensive medication, Age men > 45 years; women >/= 55 years Outcomes/Goals: Pt IDs own risk factors & lifestyle modifications by Session 10, Verbalizes symptoms of angina & response by session 3., Pt independently manages Intervention/Plan: Instruct on personal lipid levels & lipid goals/NCEP guidelines, Instruct on cholesterol Referral to dietitian:: Yes - Medical Nutrition Therapy 30-day Reassessments:: Progressing - Diabetes (Other Core Measures) Diabetes Type: Not Applicable - Weight Mgt (Other Care) Not Applicable: No Height: 5 ft 10 in Weight:: 152 lb BMI: 21.8 Diagnosis Overweight/Obesity BMI> 30% ICD-10 E66: No Diagnosis High BMI/Morbid Obesity BMI> 35% ICD-10 Z68: No Outcomes/Goals: Pt sets, maintains & shows weight loss goal & trend during rehab Intervention/Plan: Instruct on ideal BMI & set weight loss goal w/patient 30 day Reassessments:: Progressing - Healthy Eating Habits Will attend diet classes:: Yes Outcomes/Goals:: Consume diet rich in vegs,fruits,whole grain/high fiber,fish,lean meat, Limit sat/trans fats,cholesterol & added salts & sugars Intervention/Plan:: Assess current eating habits 30-day Reassessments:: Progressing - Education Gave educational materials for:: Healthy eating Nutrition - 60-Day Assessment Nutrition - 90-Day Assessment Nutrition - Final Assessment Medical - Initial Assessment Medical- 30-Day Assessment - Visit Date of Eval: 01/15/22 Session #:: 10 - Medication Compliance Preventative Medication(s):: Aspirin, Statin/lipid, Beta alvarez, Warfarin/Coumadin H/O mental health issues: depression, anxiety, or addiction?: No Doesn?t believe in the benefits of treatment?: No Believes medications are unnecessary or harmful?: No Has a concern about medication side effects?: No Expresses concern over the cost of medications?: No Outcomes/Goals: Verbalizes medications,desired effect & common side effects @ DC, Pt self-reports following medication regimen, Keeps card in wallet w/medications listed by DC Interventions/plans: Instruct on medication effects & side effects, Review medication list w/patient every two weeks, Instruct importance of taking meds as ordered & assist problem solving 30-day Reassessments:: Progressing - Tobacco Use Tobacco Use: Non-smoker - Hypertension Resting Blood Pressure:: 86/52 [place] [employer] Hypertension Guidelines: [place] [employer] Hypertension Guidelines. Normal BP Less than 120/80. Elevated BP 120/80. Hypertension Stage 1: BP 130-139/80-89. Hypertesnion Stage 2: BP 140 or higher/90 or higher. Hypertension Crisis: BP higher than 180/120 Peak Exercise Blood Pressure:: 88/38 Outcomes/Goals: Able to verbalize/achieve optimal blood pressure <130/80, Incorporates diet changes & exercise for blood pressure control by DC Interventions/plan: Instruct on optimal blood pressure, hypertension & medications, Instruct on effects of sodium, alcohol, stress, exercise &hypertension 30 day Reassessments:: Met - Tobacco Cessation Referral Smoking Cessation Referral:: No Individual Education/Counseling:: No Education Schedule Given:: Yes Medical- 60-Day Assessment Medical- 90-Day Assessment Medical - Final Assessment Psychosocial - Initial Assess Psychosocial - 30-Day Assess - VIsit Date of Eval: 01/15/22 Session #:: 10 Not Applicable: Yes History of previous Mental disease:: No - Psychosocial Test Tool Used:: PHQ-9 Questionnaire phq-9 Severity: Severity. 1-4 Minimal Depression. 5-9 Mild Depression. 10-14 Moderate Depression. 15-19 Moderately Sever Depression. 20-27 Severe Depression. Rule: - Referral to Behavioral Health PS - Interventions: Yes Attend Stress Management Classes, No Referral to Behavioral Health if PHQ-9 score >9:, No Referral to [facility], No Referral to Physician if PHQ-9 if score is 5-9: - Outcomes/Goals: See list Psychosocial Outcomes/Goals:: ID's personal stressors & 2 strategies to manage stress by discharge - Intervention/Plan: See List Interventions/Plan:: Assess stressors,coping strategies & signs of derpression on admission, Instruct/assist pt to develop coping & personal stress Mgt strategies, Instruct patient to recognize signs & symptoms of depression, Instruct patient to recog - 30-day Reassessments: 30 day Reassessments:: Met Psychosocial - 60-Day Assess Psychosocial - 90-Day Assess Psychosocial - Final Assessmen Patient Health Questionnaire 30-Day Re-eval Assessment 1. Little interest or pleasure in doing things: Not at all 2. Feeling down, depressed, or hopeless: Not at all 3. Trouble falling or staying asleep, or sleeping too much: Not at all 4. Feeling tired or having little energy: Not at all 5. Poor appetite or overeating: Not at all 6. Feeling bad about yourself -- or that you are a failure or have let yourself or your family down: Not at all 7. Trouble concentrating on things, such as reading the newspaper or watching television: Not at all 8. Moving or speaking so slowly that other people could have noticed. Or the opposite - being so fidgety or restless that you have been moving around a lot more than usual: Not at all 9. Thoughts that you would be better off , or of hurting yourself in some way: Not at all How difficult have these problems made it for you to do your work, take care of things at home, or get along with other people?: Not difficult at all Total Score: 0 Self-Efficacy 30-Day Re-eval Assessment We would like to know how confident you are in doing certain activities. Please select your confidence level for:: Select your confidence level for the following using the scale 1-10 where 1 is not at all confident and 10 is totally confident. Your score is the average of all 6 responses. Fatigue: How confident are you that you can keep the fatigue caused by your disease from interfering with the things you want to do? Select Number: 5 Physical Discomfort or Pain: How confident are you that you can keep the physical discomfort or pain of your disease from interfering with the things you want to do? Select Number: 5 Emotional Distress: How confident are you that you can keep the emotional distress caused by your disease from interfering with the things you want to do? Select Number: 10 Other Symptoms or Health Problems: How confident are you that you can keep other symptoms or health problems from interfering with the things you want to do? Select Number: 8 Different Tasks and Activities: How confident are you that you can do the different tasks and activities needed to manage your health condition so as to reduce your need to see a doctor? Select Number: 8 Medication: How confident are you that you can do things other than just taking medication to reduce how much your illness affects your everyday life? Select Number: 10 Total Score:: 7 Nutrition Survey
[2022-01-15 07:19] VITALS: BP 86/52; BP 88/38; BMI 21.8
== END 2022-02-06 23:59 ==
LOC: CR 08:00
PROVIDERS: PCP Family Medicine; Visit Provider Internal Medicine Cardiovascular Disease
DX: I50.20 Unspecified systolic (congestive) heart failure (principal); I25.2 Old myocardial infarction
CPT/HCPCS: 93798

== ENCOUNTER 2022-01-22 20:07 | Emergency (ER) | payer OTHER, SELFPAY ==
[2022-01-15 07:19] VITALS: BMI 21.8
[2022-01-22 20:08] VITALS: BP 98/74; PULSE 85; RESP 16; TEMP 36.3; O2SAT 91; BMI 20.9
[2022-01-22 20:09] VITALS: BP 98/74; PULSE 85; RESP 16; TEMP 36.3; O2SAT 91
--- NOTE | 2022-01-22 20:21 | RAD_ITS ---
STUDY: X-RAY CHEST REASON FOR EXAM: Male, 66 years old. COUGH,SOB TECHNIQUE: XR Chest 2 Views COMPARISON: 10.31.21 FINDINGS: There is no demonstrated pleural abnormality. Normal size heart. Normal mediastinum and jairo. Normal visualized pulmonary arteries. Normal visualized aortic arch and descending thoracic aorta. There are diffuse degenerative changes of the visualized thoracic spine. Normal visualized ribs, clavicles, and shoulders. There is no demonstrated abnormality of the visualized soft tissue structures of the upper abdomen. RAD/Chest PA and Lateral IMPRESSION: There are no acute findings. Electronically Signed: Mack Cooney MD at 20:50 EDT ,
--- NOTE | 2022-01-22 21:28 | EKG12_ITS ---
Test Reason : SOB Blood Pressure : / mmHG Vent. Rate : 087 BPM Atrial Rate : 087 BPM P-R Int : 156 ms QRS Dur : 152 ms QT Int : 408 ms P-R-T Axes : 067 054 168 degrees QTc Int : 490 ms Sinus rhythm with occasional Premature ventricular complexes Left bundle branch block Abnormal ECG Confirmed by HEMA BLUM, KAPIL ([id number]), proposal editor EDSON REN ([id number]) on 01/24/2022 10:41:03 AM Referred By: MAYRA Confirmed By:KAPIL GARRIDO MD
--- NOTE | 2022-01-22 21:29 | ED.VIS.DYS ---
HPI History of Present Illness Chief Complaint: Shortness of Breath Informant: patient Onset/Context/Timing Onset: Days Context: gradual Timing: Intermittent Current Severity: Mild Associated Symptoms chills, clear sputum and white sputum; Negative for fever Chest Pain: Positive for Intermittent Narrative Narrative: 6-year-old male extensive past medical history of [place], CHF and cardiomyopathy. He is on Coumadin for ventricular clot. States that he thinks he caught a cold over the weekend. He has been intermittently short of breath with chest discomfort. He has never had a DVT or PE. He denies any fever. He states he has a nonproductive cough. A sore throat. He was vaccinated against COVID. He denies any leg pain or swelling. No hemoptysis. PE Risk Factors: Negative for Cancer, OCP + Smoking + > 35, Prior DVT or PE, Recent immobilization, Recent surgery and Recent travel Prior similar symptoms: Yes Recent Illness/Hospitalization: No PFSH PFSH Medical History Atherosclerotic heart disease of [place] coronary artery without angina pectoris Cardiomyopathy Congestive heart failure (CHF) Former smoker Heart failure with reduced ejection fraction History of non-ST elevation myocardial infarction (NSTEMI) Ischemic cardiomyopathy Kidney stones Left ventricular apical thrombus Home Medications aspirin 81 mg tablet,delayed release 81 mg PO DAILY 11/13/21 [History Last Taken Unknown] atorvastatin 40 mg tablet 40 mg PO QHS 11/13/21 [History Last Taken Unknown] furosemide 20 mg tablet 20 mg PO DAILY PRN 11/13/21 [History Last Taken Unknown] hydralazine 10 mg tablet 10 mg PO TID 11/13/21 [History Last Taken Unknown] isosorbide dinitrate 10 mg tablet 5 mg PO TID tab 11/13/21 [History Last Taken Unknown] warfarin 3 mg tablet 6 mg PO DAILY 11/13/21 [History Last Taken Unknown] losartan 25 mg tablet 12.5 mg PO DAILY tab 12/13/21 [History Last Taken Unknown] hydrocodone-homatropine [Hycodan] 5 ml PO Q4H PRN 5 Days #50 ml 01/22/22 [Rx Last Taken Unknown] warfarin 7 mg PO DAILY 01/22/22 [History Last Taken Unknown] Allergy/AdvReac Type Severity Reaction Status Date / Time No Known Allergies Allergy Verified 01/22/22 20:10 Family History Father Ruptured thoracic aortic aneurysm Mother Hepatic cancer Grandfather Myocardial infarction Surgical History History of prostate surgery Social History Smoking Status: Former smoker alcohol intake: never substance use type: does not use caffeine: No ROS ROS ED ROS Narrative Cough. Shortness of breath. Chest discomfort. Review of Systems ROS Unobtainable: Denies due to encephalopathy Constitutional Constitutional ED: Reports chills; Denies fever(s) Eyes Eyes: Denies change in vision ENT ENT ED: Reports sore throat; Denies ear pain Cardiovascular Cardiovascular: Reports chest pain; Denies palpitations or racing heartbeat Respiratory/Chest Respiratory/Chest: Reports cough, dyspnea and sputum Gastrointestinal Gastrointestinal: Denies abdominal pain, nausea or vomiting Genitourinary Genitourinary ED: Denies dysuria Musculoskeletal Musculoskeletal: Denies myalgias Integumentary Denies rash Neurologic Neurologic: Denies headache(s) Psychiatric Psychiatric: Denies depression Endocrine Endocrinology: Denies polyuria Hematologic/Lymphatic Hematologic/Lymphatic: Denies easy bruising Allergic/Immunologic Allergic/Immunologic ED: Denies urticaria EXAM Physical Exam Narrative Exam Narrative: 66-year-old male no acute distress. Vital signs stable afebrile. Pulse ox 91% on room air no signs hypoxia. Blood pressure low at 98/74 he has a history of ejection fraction of 10%. His pressures often run low. H EENT exam unremarkable. Neck nontender. Lungs clear to auscultation bilaterally. Heart regular rate and rhythm rate about 85 no murmur. Abdomen soft nontender. Moving all 4 extremities. Calves are nontender without edema or cords. Neurologically is awake and alert with no focal motor deficits. Const Vital Signs: 01/22/22 20:08 01/22/22 20:09 01/22/22 20:58 Temperature 97.3 F L 97.3 F L Temperature Source Temporal Temporal Pulse Rate 85 85 Respiratory Rate 16 16 Respiratory Effort Short of Breath Respiratory Depth Normal Respiratory Pattern Normal Blood Pressure 98/74 98/74 Blood Pressure Mean 82 82 Pulse Ox 91 91 Oxygen Delivery Method Room Air Room Air 01/22/22 21:45 Temperature Temperature Source Pulse Rate Respiratory Rate Respiratory Effort Respiratory Depth Respiratory Pattern Blood Pressure Blood Pressure Mean Pulse Ox Oxygen Delivery Method Room Air Positive well nourished and well developed; Negative for obese, cachectic, contractures or unkempt General Appearance ED: well developed and NAD; Negative for unkempt, cachectic, contractures or pallor Nutritional Appearance: Negative for cachectic or obese HEENT Reports moist mucous membranes atraumatic; Negative for trauma or tenderness Eyes PERRL and EOMs intact bilaterally Neck no lymphadenopathy, supple, no meningeal signs and no JVD General: Negative for tenderness Resp normal respiratory effort and clear to auscultation bilaterally Auscultation: Negative for rales, rhonchi or wheezes Cardio regular rate, regular rhythm, S1 normal heart sound, S2 normal heart sound and no murmurs GI non-tender, non-distended and no masses Auscultation: normoactive bowel sounds; Negative for hyperactive bowel sounds or hypoactive bowel sounds Palpation: soft; Negative for tender, guarding or rebound tenderness present Back/Spine no CVA tenderness and normal to inspection General Back: Negative for CVA tenderness Extremity normal to inspection General Extremety ED: Negative for edema or tenderness General Extremity: Negative for edema Neuro oriented x3 Sensorium / Orientation: alert, oriented to person, oriented to place and oriented to time; Negative for orientation impaired, confused, lethargic or stuporous Motor Exam: strength 5/5 throughout; Negative for strength abnormal Psych mental status grossly normal Appearance: Negative for unkempt Attitude: No agitated Mood & Affect: Negative for depressed, anxious or tearful Thought Process: normal thought process Skin no wounds General Skin Exam: Negative for jaundice or pallor Lesions: no lesions Rashes: no rashes MDM MDM MDM Narrative Medical decision making narrative: Patient with cough and shortness of breath. Has extensive cardiac history including cardiomyopathy with an ejection fraction of 10%. He is on Coumadin. Cardiac work-up will be pursued. His chest x-ray is unremarkable. He will also be tested for COVID. Repeat exam patient is doing well at 10:50 PM. We went over all his test. I think most of this is chronic due to his cardiomyopathy I think his troponin is consistently up as is his BNP. There is no signs of pneumonia, failure or effusions on his chest x-ray. His repeat lung exam is unremarkable. He will be discharged to home with outpatient follow-up. He did request something for his cough he will be given a dose of Hycodan here and a prescription. He will follow-up with his primary care physician if is not improving or return if worse. Lab Data Attestation: I reviewed the patient's lab results. Lab results narrative: CBC shows white count 8. H&H 12.8 and 38. Platelets 206. INR therapeutic at 2.9. Electrolytes show a gap of 4 normal BUN and creatinine. Glucose 81. Troponin elevated at 135. BNP elevated at 1483. Chest x-ray unremarkable. Reviewing old labs he has chronically elevated troponins. Last BNP was 2474. Rapid COVID test negative. Labs: Laboratory Results - last 24 hr 01/22/22 01/22/22 01/22/22 21:40 21:40 21:40 WBC 8.0 RBC 4.28 L Hgb 12.8 L Hct 38.7 L MCV 90.4 MCH 29.9 MCHC 33.1 RDW Std Deviation 49.2 H RDW Coeff of Danilo 15.0 H Plt Count 206 MPV 11.1 Immature Gran % (Auto) 0.200 Neut % (Auto) 62.1 Lymph % (Auto) 21.8 [place] % (Auto) 9.4 Eos % (Auto) 6.1 H Baso % (Auto) 0.4 Absolute Neuts (auto) 5.0 Absolute Lymphs (auto) 1.75 Nucleated RBC % 0 PT 30.1 H INR 2.9 Sodium 139 Potassium 4.0 Chloride 105 Carbon Dioxide 30.0 Anion Gap 4 L BUN 12 Creatinine 0.84 Estim Creat Clear Calc 85.50 Est GFR (MDRD) Af Amer 118 Est GFR (MDRD) Non-Af 97 BUN/Creatinine Ratio 14.3 Glucose 81 Calcium 8.6 Troponin I High Sens 135 H* B-Natriuretic Peptide 01/22/22 21:40 WBC RBC Hgb Hct MCV MCH MCHC RDW Std Deviation RDW Coeff of Danilo Plt Count MPV Immature Gran % (Auto) Neut % (Auto) Lymph % (Auto) [place] % (Auto) Eos % (Auto) Baso % (Auto) Absolute Neuts (auto) Absolute Lymphs (auto) Nucleated RBC % PT INR Sodium Potassium Chloride Carbon Dioxide Anion Gap BUN Creatinine Estim Creat Clear Calc Est GFR (MDRD) Af Amer Est GFR (MDRD) Non-Af BUN/Creatinine Ratio Glucose Calcium Troponin I High Sens B-Natriuretic Peptide 1483.8 H Radiography Chest X-Ray - ED: 2 View, Read by ED Physician, Read by Radiologist, Heart, Lungs, Mediastinum, Bony Structures, No Acute Disease and Chronic Changes Diagnostic Testing: Clinical Impression(s) from Imaging Studies Chest X-Ray 01/22/22 20:21 IMPRESSION: There are no acute findings. Electronically Signed: Mack Cooney MD at 20:50 EDT Reading Location ID and State: [facility] / [place] , Service support , Chest x-ray, 2 views, interpreted myself and radiologist shows no acute abnormality. Normal cardiac silhouette. No infiltrate. No signs of failure. No significant effusions. Rhythm Strip Rhythm Strip: Sinus Rhythm Rate: 87 Ectopy: PVC(s) EKG Initial EKG: Attestation: I personally reviewed and interpreted this EKG as follows: Interpretation: Sinus Rhythm and No Acute Injury Pattern Comments: Sinus rhythm rate 87 PVCs. Left bundle branch block. Discharge Plan Triage Chief Complaint: Shortness of Breath ED Provider: Ray Christiansen Dx/Rx/DC Orders Clinical Impression: Viral syndrome, Cardiomyopathy, History of cardiomyopathy, Chronic anticoagulation Instructions: ED URI, Viral, No Abx (Adult) Prescriptions: New hydrocodone-homatropine [Hycodan] 5-1.5 mg/5 mL (5 mL) syrup 5 ml PO Q4H PRN (Reason: cough) 5 Days Qty: 50 RF: 0 No Action aspirin [Adult Low Dose Aspirin] 81 mg tablet,delayed release (DR/EC) 81 mg PO DAILY RF: 0 atorvastatin 40 mg tablet 40 mg PO QHS RF: 0 furosemide 20 mg tablet 20 mg PO DAILY PRN (Reason: edema) RF: 0 hydralazine 10 mg tablet 10 mg PO TID RF: 0 isosorbide dinitrate 10 mg tablet 5 mg PO TID RF: 0 warfarin 3 mg tablet 6 mg PO DAILY RF: 0 losartan 25 mg tablet 12.5 mg PO DAILY RF: 0 warfarin 6 mg Tablet 7 mg PO DAILY RF: 0 Primary Care Provider: Mazin Duran Referrals: Mazin Duran MD [Primary Care Provider] - 3-5 Days if not improving Activity Restrictions/Additional Instructions: Your chest x-ray and labs showed no acute new change. Your chest x-ray showed no signs of pneumonia nor congestive heart failure. Continue your regular medications. Hycodan for the cough primarily use at night before bedtime. If you are not improving or you are feeling worse either follow-up with your primary care physician or return to the emergency department. Your Coumadin level was in the good range at 2.9. Disposition Disposition: Home, Self Care
[2022-01-22 22:06] LABS: Absolute Lymphocyte Count 1.75 X10^3/uL (0.83-4.51); Basophil# 0.03 X10^3/uL; Basophil% 0.4 % (0-1); Eosinophil# 0.49 X10^3/uL; Eosinophils% 6.1 % (0-5); Hematocrit 38.7 % (40-54); Hemoglobin 12.8 g/dL (13.0-16.5); Lymphocyte # 1.75 X10^3/ul (0.83-4.51); Lymphocyte % 21.8 % (19-41); Mean Corp Hgb Conc 33.1 g/dL (32-36); Mean Corpuscular Hgb 29.9 pg (27.0-32.0); Mean Corpuscular Volume 90.4 fL (80-94); Mean Platelet Vol. 11.1 fl (6.2-12.0); Monocyte# 0.75 X10^3/uL; Monocyte% 9.4 % (0-10); NRBC Flagged by Analyzer 0 % (0-5); Neutrophil # 4.98 X10^3/uL (2.7-7.7); Neutrophil % 62.1 % (47-70); Platelet Count 206 K/mm3 (150-450); RBC Distribution Width SD 49.2 fl (35.1-43.9); Red Blood Count 4.28 M/mm3 (4.6-6.2)
[2022-01-22 22:15] LABS: International Normalized Ratio 2.9; Prothrombin Time (Protime)PT. 30.1 SECONDS (11.7-14.9)
[2022-01-22 22:21] LABS: BNP,B-Type NATRIURETIC PEPTIDE 1483.8 pg/mL (0-100)
[2022-01-22 22:39] LABS: Anion Gap 4 (5-15); BUN 12 mg/dL (7-18); BUN/Creat Ratio 14.3 RATIO (10-20); Calcium,Total 8.6 mg/dL (8.5-10.1); Chloride 105 mmol/L (98-107); Creatinine, Serum 0.84 mg/dL (0.70-1.30); EST Glomerular Filtration Rate 97 mL/min (>60); Est Glom Filt Rate - Afr Amer 118 mL/min (>60); Glucose 81 mg/dL (74-106); Sodium Level 139 mmol/L (136-145); Troponin-I HS 135 pg/mL (3.0-78.0)
[2022-01-22] MEDS: guaiFENesin/Codeine 5 ML UDC 10 ML PO (23:07)
== END 2022-01-22 23:09 | disposition home or self-care (01) ==
PROVIDERS: Emergency Provider Emergency Medicine; PCP Family Medicine; Visit Provider Emergency Medicine
DX: B34.9 Viral infection, unspecified (principal); I50.22 Chronic systolic (congestive) heart failure; I25.10 Atherosclerotic heart disease of native coronary artery without angina pectoris; I25.5 Ischemic cardiomyopathy; I25.2 Old myocardial infarction; Z87.891 Personal history of nicotine dependence; Z79.82 Long term (current) use of aspirin; Z79.899 Other long term (current) drug therapy; Z79.01 Long term (current) use of anticoagulants
CPT/HCPCS: 71046; 80048; 83880; 84484; 85025; 85610; 87811; 93005; 99285; A4216

== ENCOUNTER 2022-01-26 20:57 | Emergency (ER) | payer OTHER, SELFPAY ==
[2022-01-15 07:19] VITALS: BMI 21.8
[2022-01-26 20:58] VITALS: BP 115/88; PULSE 115; RESP 22; TEMP 36.5; O2SAT 95; BMI 21.7
[2022-01-26 21:04] VITALS: BP 115/88; PULSE 109; PULSE 111; RESP 18; O2SAT 94; O2SAT 95
--- NOTE | 2022-01-26 21:32 | EDS_ITS ---
HPI History of Present Illness Chief Complaint: Chest Pain Informant: patient Onset/Context/Timing Onset: Today Activity at onset: sudden Timing: Intermittent Quality: Positive for - (Fluttering) Location: Substernal Worsened By: Exertion Relieved By: Rest Associated Symptoms: Positive for Dyspnea, Cough and Palpitations; Negative for Nausea, Vomiting, Diaphoresis, Fever, Lightheadedness and Acid Reflux Narrative Narrative: Patient presents with palpitations and shortness of breath that began tonight. Patient states it has been intermittent. Patient states he feels his heart fluttering. Patient states when it does this, his implanted heart monitor/defibrillator alarms. Patient states he stopped the line before defibrillators. Patient states his fluttering goes away after that. Patient states that sometimes his pain and fluttering is worse with exertion and other times it comes on without any exertion. Patient states sometimes it goes away with rest. Patient admits to some shortness of breath with this. Patient states he has had a recent cough and upper respiratory infection. Patient states he is being evaluated for possible cardiac transplant. CVD Risk Factors: Negative for Hypertension, Diabetes, Hypercholesterolemia, Family History 1' </=55 and Smoking PE Risk Factors: Negative for Recent Travel/Surgery, Recent Immobilization, Prior DVT or PE and Cancer [facility] Medical History Atherosclerotic heart disease of [place] coronary artery without angina pectoris Cardiomyopathy Congestive heart failure (CHF) Former smoker Heart failure with reduced ejection fraction History of non-ST elevation myocardial infarction (NSTEMI) Ischemic cardiomyopathy Kidney stones Left ventricular apical thrombus Home Medications aspirin 81 mg tablet,delayed release 81 mg PO DAILY 11/13/21 [History Last Taken 01/26/22] atorvastatin 40 mg tablet 40 mg PO QHS 11/13/21 [History Last Taken 01/25/22] furosemide 20 mg tablet 20 mg PO DAILY PRN 11/13/21 [History Last Taken Unknown] hydralazine 10 mg tablet 10 mg PO TID 11/13/21 [History Last Taken 01/26/22] isosorbide dinitrate 10 mg tablet 5 mg PO TID tab 11/13/21 [History Last Taken Unknown] warfarin 3 mg tablet 6 mg PO DAILY 11/13/21 [History Last Taken Unknown] losartan 25 mg tablet 12.5 mg PO DAILY tab 12/13/21 [History Last Taken Unknown] hydrocodone-homatropine [Hycodan] 5 ml PO Q4H PRN 5 Days #50 ml 01/22/22 [Rx Last Taken Unknown] warfarin 6 mg PO DAILY 01/22/22 [History Last Taken 01/26/22] Allergy/AdvReac Type Severity Reaction Status Date / Time No Known Allergies Allergy Verified 01/22/22 20:10 Family History Father Ruptured thoracic aortic aneurysm Mother Hepatic cancer Grandfather Myocardial infarction Surgical History History of prostate surgery Social History Smoking Status: Former smoker alcohol intake: never substance use type: does not use caffeine: No ROS ROS ED Constitutional Constitutional ED: Denies chills or fever(s) Eyes Eyes: Denies blurry vision or change in vision ENT ENT ED: Reports sore throat; Denies rhinorrhea Cardiovascular Cardiovascular: Reports chest pain and palpitations Respiratory/Chest Respiratory/Chest: Reports cough and dyspnea Gastrointestinal Gastrointestinal: Reports nausea; Denies abdominal pain or vomiting Genitourinary Genitourinary ED: Denies dysuria or hematuria Musculoskeletal Musculoskeletal: Reports neck pain; Denies back pain Integumentary Denies abscess or rash Neurologic Neurologic: Denies headache(s) or weakness Allergic/Immunologic Allergic/Immunologic ED: Denies mouth swelling or urticaria EXAM Physical Exam Const Vital Signs: 01/26/22 20:58 01/26/22 21:04 01/26/22 21:05 Temperature 97.7 F L Temperature Source Oral Pulse Rate 115 H 111 H Respiratory Rate 22 H 18 Respiratory Effort Normal Blood Pressure 115/88 H 115/88 H Blood Pressure Mean 97 97 Pulse Ox 95 95 Oxygen Delivery Method Room Air Room Air 01/26/22 21:42 01/26/22 22:00 01/26/22 23:00 Temperature Temperature Source Pulse Rate 99 98 Respiratory Rate 18 14 Respiratory Effort Blood Pressure 100/83 H Blood Pressure Mean 88 Pulse Ox 96 95 Oxygen Delivery Method Room Air Room Air Room Air Positive well nourished and well developed General Appearance ED: well developed and NAD HEENT normocephalic and atraumatic Eyes PERRL and EOMs intact bilaterally Neck supple and no JVD Chest Wall palpation of chest normal Resp normal respiratory effort and clear to auscultation bilaterally Effort and Inspection: Negative for respiratory distress Cardio regular rhythm Rate: tachycardic GI normal to inspection, nondistended, normoactive bowel sounds, soft to palpation, non-tender and non-distended Extremity normal to inspection General Extremety ED: Negative for edema or tenderness General Extremity: Negative for edema Neuro oriented x3, CN's II-XII intact bilaterally and no sensory deficits noted Sensorium / Orientation: awake and alert Motor Exam: strength 5/5 throughout Psych mental status grossly normal Heart Score History: Moderately Suspicious ECG: Normal Age: >45 - <65 years Risk Factors: >/= 3 Risk Factors or History of CAD Troponin: >1 - <3 Normal Limit Score: 5 MDM MDM MDM Narrative Medical decision making narrative: EKG was obtained. On my interpretation it shows sinus tachycardia with a rate of 105. There are occasional PVCs noted. There is a left bundle branch block pattern noted. There are no acute ST or T wave changes noted. Portable chest x-ray was obtained. There is 1 view. There is a small right pleural effusion. There is no acute process noted. Bony thorax is normal. Radiologist also interpreted the x-ray and agrees. CBC was within normal limits. PT was 28.1 with an INR of 2.7. PTT was 44.6. Basic metabolic profile was within normal limits. Initial high-sensitivity troponin was elevated at 305. 2-hour repeat high-sensitivity troponin was 304. Case was discussed with Dr. Larose. He stated the elevated troponins were likely from his cardiomyopathy. He stated that he could go home and follow-up as an outpatient. Patient feels better and wants to go home. Patient was instructed to follow-up with his primary care physician and geology technician in 3 to 5 days. Patient was instructed return if worse in any way. Patient understood and was agreeable with the plan. All questions were answered Lab Data Attestation: I reviewed the patient's lab results. Labs: Laboratory Results - last 24 hr 01/26/22 01/26/22 01/26/22 21:00 21:00 21:00 WBC 9.3 RBC 4.64 Hgb 13.8 Hct 41.5 MCV 89.4 MCH 29.7 MCHC 33.3 RDW Std Deviation 48.4 H RDW Coeff of Danilo 14.8 H Plt Count 279 MPV 11.1 Immature Gran % (Auto) 0.300 Neut % (Auto) 58.6 Lymph % (Auto) 29.7 [place] % (Auto) 7.8 Eos % (Auto) 3.2 Baso % (Auto) 0.4 Absolute Neuts (auto) 5.4 Absolute Lymphs (auto) 2.76 Nucleated RBC % 0 PT 28.1 H INR 2.7 APTT 44.6 H Sodium 140 Potassium 4.3 Chloride 107 Carbon Dioxide 25.0 Anion Gap 8 BUN 18 Creatinine 1.26 Estim Creat Clear Calc 59.31 Est GFR (MDRD) Af Amer 74 Est GFR (MDRD) Non-Af 61 BUN/Creatinine Ratio 14.3 Glucose 115 H Calcium 9.1 Troponin I High Sens 305 H* 01/26/22 23:48 WBC RBC Hgb Hct MCV MCH MCHC RDW Std Deviation RDW Coeff of Danilo Plt Count MPV Immature Gran % (Auto) Neut % (Auto) Lymph % (Auto) [place] % (Auto) Eos % (Auto) Baso % (Auto) Absolute Neuts (auto) Absolute Lymphs (auto) Nucleated RBC % PT INR APTT Sodium Potassium Chloride Carbon Dioxide Anion Gap BUN Creatinine Estim Creat Clear Calc Est GFR (MDRD) Af Amer Est GFR (MDRD) Non-Af BUN/Creatinine Ratio Glucose Calcium Troponin I High Sens 304 H* Radiography Chest X-Ray - ED: 1 View, Read by ED Physician, Read by Radiologist and Right Effusion Diagnostic Testing: Clinical Impression(s) from Imaging Studies Chest X-Ray 01/26/22 21:48 IMPRESSION: Small right pleural effusion with overlying atelectasis. Electronically Signed: Dorian Cavazos MD at 22:03 EDT , EKG Initial EKG: Interpretation: Sinus Rhythm (105), No Acute Injury Pattern and LBBB Prior EKG tracings: available for review Prior: Unchanged (01/22/2022) Discharge Plan Triage Chief Complaint: Chest Pain ED Provider: Mazin Evans Dx/Rx/DC Orders Clinical Impression: Chest pain, History of cardiomyopathy, Heart palpitations Instructions: ED Chest Pain, Uncertain Cause, ED Palpitations Prescriptions: No Action aspirin [Adult Low Dose Aspirin] 81 mg tablet,delayed release (DR/EC) 81 mg PO DAILY RF: 0 atorvastatin 40 mg tablet 40 mg PO QHS RF: 0 furosemide 20 mg tablet 20 mg PO DAILY PRN (Reason: edema) RF: 0 hydralazine 10 mg tablet 10 mg PO TID RF: 0 isosorbide dinitrate 10 mg tablet 5 mg PO TID RF: 0 warfarin 3 mg tablet 6 mg PO DAILY RF: 0 losartan 25 mg tablet 12.5 mg PO DAILY RF: 0 warfarin 6 mg Tablet 6 mg PO DAILY RF: 0 hydrocodone-homatropine [Hycodan] 5-1.5 mg/5 mL (5 mL) syrup 5 ml PO Q4H PRN (Reason: cough) 5 Days Qty: 50 RF: 0 Primary Care Provider: Mazin Duran Referrals: Mazin Duran MD [Primary Care Provider] - 5-7 Days Dorian Becerril MD [STAFF PHYSICIAN] - 3-5 Days Disposition Disposition: Home, Self Care
--- NOTE | 2022-01-26 21:36 | EKG12_ITS ---
Test Reason : CP Blood Pressure : / mmHG Vent. Rate : 105 BPM Atrial Rate : 105 BPM P-R Int : 146 ms QRS Dur : 150 ms QT Int : 362 ms P-R-T Axes : 071 065 194 degrees QTc Int : 478 ms Sinus tachycardia with occasional Premature ventricular complexes and Fusion complexes Left bundle branch block Abnormal ECG Confirmed by DILMA BLUM, SOFIYA ([id number]), newspaper or periodical editor EDSON REN ([id number]) on 01/29/2022 10:09:46 A M Referred By: DANIELA Confirmed By:GREGORIO PERERA MD
[2022-01-26] MEDS: Aspirin 81 MG TAB.CHEW 324 MG PO (21:45)
--- NOTE | 2022-01-26 21:48 | RAD_ITS ---
STUDY: X-RAY CHEST REASON FOR EXAM: Male, 66 years old. Chest pain TECHNIQUE: Single AP portable view of the chest. COMPARISON: 01/22/2022 FINDINGS: Small right pleural effusion with overlying atelectasis. The left lung appears clear. Normal size heart. Normal mediastinum and jairo. Normal visualized pulmonary arteries. Normal visualized aortic arch and descending thoracic aorta. There is no demonstrated abnormality of the visualized soft tissue structures of the upper abdomen. RAD/Chest 1 View (Portable) IMPRESSION: Small right pleural effusion with overlying atelectasis. Electronically Signed: Dorian Cavazos MD at 22:03 EDT ,
[2022-01-26 21:55] LABS: Absolute Lymphocyte Count 2.76 X10^3/uL (0.83-4.51); Absolute Neutrophil Count 5.4 X10^3/uL (2.0-7.7); Basophil# 0.04 X10^3/uL; Basophil% 0.4 % (0-1); Eosinophils% 3.2 % (0-5); Hematocrit 41.5 % (40-54); Hemoglobin 13.8 g/dL (13.0-16.5); Lymphocyte # 2.76 X10^3/ul (0.83-4.51); Lymphocyte % 29.7 % (19-41); Mean Corp Hgb Conc 33.3 g/dL (32-36); Mean Corpuscular Hgb 29.7 pg (27.0-32.0); Mean Corpuscular Volume 89.4 fL (80-94); Mean Platelet Vol. 11.1 fl (6.2-12.0); Monocyte# 0.73 X10^3/uL; Monocyte% 7.8 % (0-10); NRBC Flagged by Analyzer 0 % (0-5); Neutrophil # 5.44 X10^3/uL (2.7-7.7); Neutrophil % 58.6 % (47-70); Platelet Count 279 K/mm3 (150-450); RBC Distribution Width CV 14.8 % (11.6-14.6); RBC Distribution Width SD 48.4 fl (35.1-43.9); Red Blood Count 4.64 M/mm3 (4.6-6.2); White Blood Count 9.3 K/mm3 (4.4-11.0)
[2022-01-26 22:00] VITALS: PULSE 99; RESP 18; O2SAT 96
[2022-01-26 22:06] LABS: International Normalized Ratio 2.7; Prothrombin Time (Protime)PT. 28.1 SECONDS (11.7-14.9)
[2022-01-26 22:07] LABS: Partial Thromboplast Time 44.6 Seconds (24.1-36.2)
[2022-01-26 22:17] LABS: Anion Gap 8 (5-15); BUN 18 mg/dL (7-18); BUN/Creat Ratio 14.3 RATIO (10-20); Calcium,Total 9.1 mg/dL (8.5-10.1); Chloride 107 mmol/L (98-107); Creatinine, Serum 1.26 mg/dL (0.70-1.30); EST Glomerular Filtration Rate 61 mL/min (>60); Est Glom Filt Rate - Afr Amer 74 mL/min (>60); Estimated Creatinine Clearance 59.31 ml/min; Glucose 115 mg/dL (74-106); Potassium 4.3 mmol/L (3.5-5.1); Sodium Level 140 mmol/L (136-145); Troponin-I HS (w/2H Reflex) 305 pg/mL (3.0-78.0)
[2022-01-26 23:00] VITALS: BP 100/83; PULSE 98; RESP 14; O2SAT 95
[2022-01-26 23:48] LABS: Reflex Troponin-HS? (from REC) Y
[2022-01-27 00:15] LABS: Troponin-I HS 304 pg/mL (3.0-78.0)
[2022-01-27 00:58] VITALS: BP 110/53; PULSE 74; RESP 16; O2SAT 95
== END 2022-01-27 00:59 | disposition home or self-care (01) ==
PROVIDERS: Emergency Provider Emergency Medicine; PCP Family Medicine; Visit Provider Emergency Medicine
DX: R07.9 Chest pain, unspecified (principal); I42.9 Cardiomyopathy, unspecified; I50.22 Chronic systolic (congestive) heart failure; I25.10 Atherosclerotic heart disease of native coronary artery without angina pectoris; R00.2 Palpitations; I49.3 Ventricular premature depolarization; Z87.891 Personal history of nicotine dependence; I44.7 Left bundle-branch block, unspecified; I25.2 Old myocardial infarction
CPT/HCPCS: 71045; 80048; 84484; 85025; 85610; 85730; 93005; 99285; A4216

== ENCOUNTER → 2022-01-31 | Outpatient (CLI) | payer OTHER, SELFPAY ==
[2022-01-15 07:19] VITALS: BMI 21.8
[2022-02-16 18:23] LABS: Cotinine Screen Blood <1.0 ng/mL (.); Cotinine Screen Urine Negative ng/mL (Cutoff=300); Nicotine Blood <1.0 ng/mL (.)
== END | disposition home or self-care (01) ==
PROVIDERS: PCP Family Medicine
DX: Z76.82 Awaiting organ transplant status (principal); Z87.891 Personal history of nicotine dependence
CPT/HCPCS: 36415; 80307; 80323

== ENCOUNTER 2022-02-07 06:30 | Outpatient (RCR) | payer OTHER, SELFPAY ==
[2022-01-15 07:19] VITALS: BMI 21.8
[2022-02-07 01:06] VITALS: BP 86/52; BP 88/38
== END 2022-03-08 23:59 ==
LOC: CR 06:30
PROVIDERS: PCP Family Medicine; Visit Provider Internal Medicine Cardiovascular Disease
DX: I50.20 Unspecified systolic (congestive) heart failure (principal); I21.4 Non-ST elevation (NSTEMI) myocardial infarction
CPT/HCPCS: 93798

== ENCOUNTER 2022-02-08 10:47 | Observation (INO) | payer OTHER, SELFPAY ==
[2022-01-15 07:19] VITALS: BMI 21.8
[2022-02-08 10:48] VITALS: BP 97/75; PULSE 102; RESP 16; TEMP 36.2; O2SAT 95; BMI 20.9
[2022-02-08 11:09] VITALS: PULSE 101; RESP 16
--- NOTE | 2022-02-08 11:27 | EKG12_ITS ---
Test Reason : SOB Blood Pressure : / mmHG Vent. Rate : 094 BPM Atrial Rate : 094 BPM P-R Int : 152 ms QRS Dur : 156 ms QT Int : 422 ms P-R-T Axes : 064 060 -05 degrees QTc Int : 527 ms Sinus rhythm with Fusion complexes Left bundle branch block Abnormal ECG Confirmed by RUTH RIGGINS MD ([id number]), editor at large EDSON REN ([id number]) on 02/12/2022 12:53:48 PM Referred By: NICOLLE
--- NOTE | 2022-02-08 11:29 | ED.VIS.DYS ---
HPI History of Present Illness Chief Complaint: Shortness of Breath Informant: patient and spouse/S.O. Narrative Narrative: Patient presents with worsening dyspnea and mostly dyspnea on exertion. He contacted his cardiology department down at [facility] where he is getting on the transplant list. They recommend he go to the nearest ER and then be transferred to [facility]. Patient states over the last week he has been getting more dyspnea on exertion. He states he has trouble going from 1 room to the next without taking a break and sitting down. When he is still he is actually doing okay. He had some of these symptoms a little over a week ago. He was placed on Lasix at 40 a day for 5 days. He states he had good urine output and lost 3 or more pounds but his symptoms did not change at all with this. Patient has a history of congestive heart failure and ejection fraction of approximately 10% or less. I saw this patient actually back in October. He states they do not think his heart problem is related to COVID or virus but they are not sure what caused it. However, this patient had Pfizer vaccines but then had COVID in September and started with symptoms in October. He generally has been healthy his whole life he has been active without high blood pressure cholesterol or known heart disease. He does wear a LifeVest now. [facility] Medical History Atherosclerotic heart disease of [place] coronary artery without angina pectoris Cardiomyopathy Congestive heart failure (CHF) Former smoker Heart failure with reduced ejection fraction History of non-ST elevation myocardial infarction (NSTEMI) Ischemic cardiomyopathy Kidney stones Left ventricular apical thrombus Home Medications aspirin 81 mg tablet,delayed release 81 mg PO DAILY 11/13/21 [History Last Taken 01/26/22] atorvastatin 40 mg tablet 40 mg PO QHS 11/13/21 [History Last Taken 01/25/22] hydralazine 10 mg tablet 10 mg PO TID 11/13/21 [History Last Taken 01/26/22] isosorbide dinitrate 10 mg tablet 5 mg PO TID tab 11/13/21 [History Last Taken Unknown] losartan 25 mg tablet 12.5 mg PO DAILY tab 12/13/21 [History Last Taken Unknown] warfarin 6 mg PO DAILY 01/22/22 [History Last Taken 01/26/22] warfarin 7 mg PO TU 02/08/22 [History Last Taken Unknown] Allergy/AdvReac Type Severity Reaction Status Date / Time No Known Allergies Allergy Verified 02/08/22 10:49 Family History Father Ruptured thoracic aortic aneurysm Mother Hepatic cancer Grandfather Myocardial infarction Surgical History History of prostate surgery Social History Smoking Status: Former smoker alcohol intake: never substance use type: does not use caffeine: No ROS ROS ED Constitutional Constitutional ED: Denies chills or fever(s) Eyes Eyes: Denies blurry vision ENT ENT ED: Denies rhinorrhea Cardiovascular Cardiovascular: Denies chest pain or palpitations Respiratory/Chest Respiratory/Chest: Reports dyspnea and dyspnea on exertion; Denies cough or sputum Gastrointestinal Gastrointestinal: Denies nausea or vomiting Genitourinary Genitourinary ED: Denies dysuria Musculoskeletal Musculoskeletal: Denies myalgias Integumentary Denies rash Neurologic Neurologic: Denies headache(s) Endocrine Endocrinology: Denies polydipsia or polyuria Hematologic/Lymphatic Hematologic/Lymphatic: Reports easy bleeding and easy bruising Allergic/Immunologic Allergic/Immunologic ED: Denies urticaria EXAM Physical Exam Const Vital Signs: 02/08/22 10:48 02/08/22 11:09 02/08/22 11:40 Temperature 97.2 F L Temperature Source Temporal Pulse Rate 102 H 101 H Respiratory Rate 16 16 Respiratory Effort Short of Breath Labored Respiratory Depth Normal Respiratory Pattern Normal Blood Pressure 97/75 Blood Pressure Mean 82 Pulse Ox 95 Oxygen Delivery Method Room Air Room Air 02/08/22 15:36 02/08/22 19:13 02/08/22 23:24 Temperature Temperature Source Pulse Rate 90 92 91 Respiratory Rate 19 H 18 18 Respiratory Effort Respiratory Depth Respiratory Pattern Blood Pressure 93/75 93/69 85/65 L Blood Pressure Mean 81 77 71 Pulse Ox 94 92 95 Oxygen Delivery Method Room Air Room Air Room Air 02/09/22 00:59 Temperature Temperature Source Pulse Rate 88 Respiratory Rate 16 Respiratory Effort Respiratory Depth Respiratory Pattern Blood Pressure 91/73 Blood Pressure Mean 79 Pulse Ox 96 Oxygen Delivery Method Room Air Positive well nourished and well developed Constitutional Narrative: Patient actually looks very comfortable just sitting in bed. Blood pressure is a little bit lower but for him this is very good. His blood pressures will run in the 90s or even less. General Appearance ED: well developed HEENT atraumatic Eyes General Eye ED: Negative for pale conjunctiva or scleral icterus Neck no JVD Resp normal respiratory effort and clear to auscultation bilaterally Resp Narrative: Despite his symptoms I really do not hear significant rales. I am wondering if a lot of his symptoms are due to worsening ejection fraction and cardiac function rather than pure fluid overload Cardio regular rhythm Cardio Narrative: Heart sounds regular. Rate is right about 100. GI non-tender Palpation: soft Back/Spine normal to inspection Extremity normal to inspection Extremity Narrative: Trace pretibial edema only. Neuro oriented x3 Sensorium / Orientation: alert Psych mental status grossly normal Skin Lesions: no lesions Rashes: no rashes MDM MDM MDM Narrative Medical decision making narrative: PPatient's x-ray shows no marked change. INR is therapeutic. CBC is normal. Electrolytes are overall unremarkable. Troponin is mildly elevated at 90. His L evaded at 2019. Initial lactate is 2.5 but repeat is 1.5. Bilaterally prior to having a Lasix course for 5 days his BNP was actually lower. Clinically, this patient is very comfortable sitting in bed. But he has significant exertional dyspnea. This is likely related to his poor ejection fraction. His last echo was done in October and has an EF of 10%. He had contacted his housing inspector down in [facility] who told him to come to the local ER to be transferred down there for further evaluation and treatment. I called the number given to me by the patient and his . I left a message with Jamee who is the medical receptionist assistant of Dr. Cosme. I have not yet gotten a call back. I have also talked to the [facility] transfer center. They are contacting his physician or the physician on-call and plan to call us back with the plan. I am also waiting on that return call. Patient is turned over the oncoming physician pending these connections being made. Lab Data Attestation: I reviewed the patient's lab results. Labs: Laboratory Results - last 24 hr 02/08/22 02/08/22 02/08/22 11:15 11:15 11:15 WBC 6.3 RBC 4.60 Hgb 13.7 Hct 40.8 MCV 88.7 MCH 29.8 MCHC 33.6 RDW Std Deviation 49.7 H RDW Coeff of Danilo 15.4 H Plt Count 277 MPV 11.2 Immature Gran % (Auto) 0.200 Neut % (Auto) 70.0 Lymph % (Auto) 22.5 [place] % (Auto) 5.1 Eos % (Auto) 1.7 Baso % (Auto) 0.5 Absolute Neuts (auto) 4.4 Absolute Lymphs (auto) 1.42 Nucleated RBC % 0 PT 21.7 H INR 1.9 Sodium 138 Potassium 3.8 Chloride 106 Carbon Dioxide 24.0 Anion Gap 8 BUN 24 H Creatinine 1.28 Estim Creat Clear Calc 56.11 Est GFR (MDRD) Af Amer 73 Est GFR (MDRD) Non-Af 60 BUN/Creatinine Ratio 18.8 Glucose 185 H Lactic Acid Calcium 9.0 Troponin I High Sens 90 H B-Natriuretic Peptide 02/08/22 02/08/22 02/08/22 11:15 11:50 16:15 WBC RBC Hgb Hct MCV MCH MCHC RDW Std Deviation RDW Coeff of Danilo Plt Count MPV Immature Gran % (Auto) Neut % (Auto) Lymph % (Auto) [place] % (Auto) Eos % (Auto) Baso % (Auto) Absolute Neuts (auto) Absolute Lymphs (auto) Nucleated RBC % PT INR Sodium Potassium Chloride Carbon Dioxide Anion Gap BUN Creatinine Estim Creat Clear Calc Est GFR (MDRD) Af Amer Est GFR (MDRD) Non-Af BUN/Creatinine Ratio Glucose Lactic Acid 2.5 H* 1.5 Calcium Troponin I High Sens B-Natriuretic Peptide 2019.1 H Radiography Diagnostic Testing: Clinical Impression(s) from Imaging Studies Chest X-Ray 02/08/22 12:05 IMPRESSION: Stable blunting of the right costophrenic angle. Cardiomegaly. Electronically Signed: Spencer Choi MD at 12:28 EDT , Discharge Plan Dx/Rx/DC Orders Clinical Impression: CHF exacerbation, Dyspnea on exertion, Decreased cardiac ejection fraction, Cardiomyopathy Disposition Disposition: Acute Care [facility] Discharge Date/Time: 02/09/22 02:31
[2022-02-08 11:40] VITALS: O2SAT 96
--- NOTE | 2022-02-08 12:05 | RAD_ITS ---
STUDY: X-RAY CHEST REASON FOR EXAM: Male, 66 years old. One day history of shortness of breath. TECHNIQUE: Single AP portable view of the chest. COMPARISON: Comparison is made with prior study dated 01/26/2022. FINDINGS: EKG electrodes are seen. Stable blunting of the right costophrenic angle. Stable calcified granuloma in the peripheral aspect of the left upper lobe. There is no demonstrated pleural abnormality. Cardiomegaly. Normal mediastinum and jairo. Normal visualized pulmonary arteries. There is atherosclerotic tortuosity of the aortic arch and descending thoracic aorta. Normal visualized thoracic spine. Normal visualized ribs, clavicles, and shoulders. There is no demonstrated abnormality of the visualized soft tissue structures of the upper abdomen. RAD/Chest 1 View (Portable) IMPRESSION: Stable blunting of the right costophrenic angle. Cardiomegaly. Electronically Signed: Spencer Choi MD at 12:28 EDT ,
[2022-02-08 12:11] LABS: Absolute Lymphocyte Count 1.42 X10^3/uL (0.83-4.51); Absolute Neutrophil Count 4.4 X10^3/uL (2.0-7.7); Basophil# 0.03 X10^3/uL; Basophil% 0.5 % (0-1); Eosinophil# 0.11 X10^3/uL; Eosinophils% 1.7 % (0-5); Hematocrit 40.8 % (40-54); Hemoglobin 13.7 g/dL (13.0-16.5); Lymphocyte # 1.42 X10^3/ul (0.83-4.51); Lymphocyte % 22.5 % (19-41); Mean Corp Hgb Conc 33.6 g/dL (32-36); Mean Corpuscular Hgb 29.8 pg (27.0-32.0); Mean Corpuscular Volume 88.7 fL (80-94); Mean Platelet Vol. 11.2 fl (6.2-12.0); Monocyte# 0.32 X10^3/uL; Monocyte% 5.1 % (0-10); NRBC Flagged by Analyzer 0 % (0-5); Neutrophil # 4.42 X10^3/uL (2.7-7.7); Platelet Count 277 K/mm3 (150-450); RBC Distribution Width CV 15.4 % (11.6-14.6); RBC Distribution Width SD 49.7 fl (35.1-43.9); White Blood Count 6.3 K/mm3 (4.4-11.0)
[2022-02-08 12:26] LABS: International Normalized Ratio 1.9; Prothrombin Time (Protime)PT. 21.7 SECONDS (11.7-14.9)
[2022-02-08 12:35] LABS: Anion Gap 8 (5-15); BUN 24 mg/dL (7-18); BUN/Creat Ratio 18.8 RATIO (10-20); Chloride 106 mmol/L (98-107); Creatinine, Serum 1.28 mg/dL (0.70-1.30); EST Glomerular Filtration Rate 60 mL/min (>60); Est Glom Filt Rate - Afr Amer 73 mL/min (>60); Estimated Creatinine Clearance 56.11 ml/min; Glucose 185 mg/dL (74-106); Potassium 3.8 mmol/L (3.5-5.1); Sodium Level 138 mmol/L (136-145); Troponin-I HS 90 pg/mL (3.0-78.0)
[2022-02-08 12:41] LABS: Lactic Acid 2.5 mmol/L (0.4-1.9)
[2022-02-08 15:36] VITALS: BP 93/75; PULSE 90; RESP 19; O2SAT 94
[2022-02-08 16:08] LABS: Reflex Lactate? Y
[2022-02-08 16:47] LABS: Lactic Acid 1.5 mmol/L (0.4-1.9)
--- NOTE | 2022-02-08 18:14 | NURSING ---
CALLED [facility], TALKED TO CLEM. WAITING ON DISCHARGES, SHOULD BE LATER ON OVIDIO
--- NOTE | 2022-02-08 18:24 | ED.RN ---
PT UPDATED ON STATUS TO [facility]. [facility] CALLED AND STATES THEY ARE WAITING FOR DISCHARGES AND WILL HAVE A BED LATER TONIGHT
[2022-02-08 19:13] VITALS: BP 93/69; PULSE 92; RESP 18; O2SAT 92
[2022-02-08 23:24] VITALS: BP 85/65; PULSE 91; RESP 18; O2SAT 95
--- NOTE | 2022-02-08 23:29 | ED.RN ---
[facility] called for update. no bed assignment at this time patient has been accepted by Dr. Giang
[2022-02-09 00:59] VITALS: BP 91/73; PULSE 88; RESP 16; O2SAT 96
--- NOTE | 2022-02-09 01:43 | HP.PCM.HOS_ITS ---
HPI - General General Date of Admission: 02/09/22 Date of Service: 02/09/22 Chief Complaint: Dyspnea, fatigue. HPI Narrative The patient is a 66 y/o M w/ PMHx: Hx COVID illness 09/2021, CAD s/p NSTEMI, Hx LV Apical Thrombus on coumadin, Systolic CHF/Ischemic Cardiomyopathy, Former Tobacco use, HTN, HLD who presents to the [facility] ED on 02/08/22 initially secondary to recent history of URI ~ 3 weeks prior with since then increased fatigue and malaise and progressively worsening dyspnea, worse with exertion but more severe over the last week with discussions and evaluation by his truck dispatcher with initiation of 40 mg twice daily of his Lasix with a 5-day duration however patient denies significant improvement despite transiently increased urine output with approximate 3 pound weight loss since this regimen has been instituted prompting eventual ED evaluation. He notes feeling more fatigued and weak than prior. He denies specifically any weight gain or marked orthopnea of note and upon initial evaluation upon walking into the ED room is laying flat and appears comfortable. He reports that given his symptoms he did contact [facility] as he is currently awaiting cardiac transplant and was told to present to the emergency room for transfer to [facility] for further evaluation. Work-up in the ED includes T97.2, heart rate initially 102 with most recent 88, BP 97/75 and patient has been noted to remain similar during ED stay, respiratory rate 16, oxygenation ranges 92 to most recently 96% on room air, CBC with WC 6.3, hemoglobin 13.7, platelet 277 without marked shift, coags with INR 1.9, BMP with BUN/creat 24/1.28, glucose 185, lactic acid 1.5, troponin 90, BNP 2019.1, rapid COVID antigen negative, chest x-ray with cardiomegaly with stable blunting of the right costophrenic angle, initial lactic acid 2.5 with repeat 1.5, EKG with mild sinus tachycardia with no acute evidence of ischemia. In the ED given appearance patient was not administered any additional diuresis especially given low blood pressure. ED physician did discuss case with patient's truck dispatcher at [facility] and the patient has been accepted however is still awaiting a bed. Patient of note per review of records was recently seen in the emergency room 01/22/2022 in addition to 01/26/2022 and discharged both of those times and stable condition. Patient continues to have his LifeVest and wears it faithfully. Admitting physician [facility] Dr. Giang (heart and vascular transplant surgeon). [facility] Medical History Atherosclerotic heart disease of [place] coronary artery without angina pectoris Cardiomyopathy Congestive heart failure (CHF) Former smoker Heart failure with reduced ejection fraction History of non-ST elevation myocardial infarction (NSTEMI) Ischemic cardiomyopathy Kidney stones Left ventricular apical thrombus Home Medications aspirin 81 mg tablet,delayed release 81 mg PO DAILY 11/13/21 [History Last Taken 01/26/22] atorvastatin 40 mg tablet 40 mg PO QHS 11/13/21 [History Last Taken 01/25/22] hydralazine 10 mg tablet 10 mg PO TID 11/13/21 [History Last Taken 01/26/22] isosorbide dinitrate 10 mg tablet 5 mg PO TID tab 11/13/21 [History Last Taken Unknown] losartan 25 mg tablet 12.5 mg PO DAILY tab 12/13/21 [History Last Taken Unknown] warfarin 6 mg PO SUMOWETHFRSA 01/22/22 [History Last Taken 01/26/22] warfarin 7 mg PO TU 02/08/22 [History Last Taken Unknown] Allergy/AdvReac Type Severity Reaction Status Date / Time No Known Allergies Allergy Verified 02/08/22 10:49 Family History Father Ruptured thoracic aortic aneurysm Mother Hepatic cancer Grandfather Myocardial infarction Surgical History History of prostate surgery Social History Smoking Status: Former smoker alcohol intake: never substance use type: does not use caffeine: No ROS ROS Narrative Admission Review of Systems: CONSTITUTIONAL: No weight loss, fever, chills, + weakness or fatigue. HEENT: Eyes: No visual loss, blurred vision, double vision or yellow sclerae. Ears, Nose, Throat: No hearing loss, sneezing, congestion, runny nose or sore throat. SKIN: No rash or itching, lesions, wounds. CARDIOVASCULAR: + Occasional chest pain, chest pressure or chest discomfort, No palpitations, edema, orthopnea, syncopal events. RESPIRATORY: + Shortness of breath, No marked cough or sputum, wheezing, hemoptysis. GASTROINTESTINAL: No anorexia, nausea, vomiting or diarrhea, abdominal pain, melena, BRBPR. GENITOURINARY: No dysuria, frequency, urgency or retention. NEUROLOGICAL: No headache, dizziness, syncope, paralysis, ataxia, numbness or tingling in the extremities, focal weakness, change in bowel or bladder control, seizure. MUSCULOSKELETAL:+ muscle, back pain, joint pain or stiffness. HEMATOLOGIC: + anemia, bleeding or bruising. LYMPHATICS: No enlarged nodes. No history of splenectomy. PSYCHIATRIC: No history of depression or anxiety. ENDOCRINOLOGIC: No reports of sweating, cold or heat intolerance. No polyuria or polydipsia. ALLERGIES: No history of asthma, hives, eczema or rhinitis. Vital Signs Vital Signs Vital Signs: 02/08/22 10:48 02/08/22 11:09 02/08/22 11:40 Temperature 97.2 F L Temperature Source Temporal Pulse Rate 102 H 101 H Respiratory Rate 16 16 Respiratory Effort Short of Breath Labored Respiratory Depth Normal Respiratory Pattern Normal Blood Pressure 97/75 Blood Pressure Mean 82 Pulse Ox 95 Oxygen Delivery Method Room Air Room Air 02/08/22 15:36 02/08/22 19:13 02/08/22 23:24 Temperature Temperature Source Pulse Rate 90 92 91 Respiratory Rate 19 H 18 18 Respiratory Effort Respiratory Depth Respiratory Pattern Blood Pressure 93/75 93/69 85/65 L Blood Pressure Mean 81 77 71 Pulse Ox 94 92 95 Oxygen Delivery Method Room Air Room Air Room Air 02/09/22 00:59 Temperature Temperature Source Pulse Rate 88 Respiratory Rate 16 Respiratory Effort Respiratory Depth Respiratory Pattern Blood Pressure 91/73 Blood Pressure Mean 79 Pulse Ox 96 Oxygen Delivery Method Room Air Weight Weight: 150 lb Body Mass Index (BMI) 20.9 Physical Exam Narrative Physical Examination: General: Awake, alert, oriented x 3 and cooperative, initially laying in the ED bed, no acute distress, mildly fatigued appearing. Skin: Normal color, normal turgor, no icterus, no cyanosis. HEENT: AT/NC, EOMI, PERRLA, MMM, no carotid bruits, + JVD noted. Lungs: CTA bilaterally, moderate effort, mild decrease BL bases, no rales, ronchi or wheezing. Heart: Currently regular rate and rhythm; no gallop, rub audible. LifeVest in place. Abdomen: Soft, NTTP, ND, normal BS, no HSM. Extremities: No cyanosis, clubbing, or edema. Neurological: Patient awake, alert, oriented as noted, cognitive function intact; pupils equally reactive to light and accommodation, cranial nerves II- XII grossly normal, moving all 4 extremities, no focal deficits, strength moderately globally creased however primarily with activity becomes more severely reduced. Psychiatric: Affect appears mildly fatigued otherwise normal, no acute evidence of depressive or anxiety feelings. Results Lab / Micro Data Result Diagrams: 02/08/22 11:15 02/08/22 11:15 Labs: Laboratory Results - last 24 hr 02/08/22 11:15: WBC 6.3, RBC 4.60, Hgb 13.7, Hct 40.8, MCV 88.7, MCH 29.8, MCHC 33.6, RDW Std Deviation 49.7 H, RDW Coeff of Danilo 15.4 H, Plt Count 277, MPV 11.2, Immature Gran % (Auto) 0.200, Neut % (Auto) 70.0, Lymph % (Auto) 22.5, [place] % (Auto) 5.1, Eos % (Auto) 1.7, Baso % (Auto) 0.5, Absolute Neuts (auto) 4.4, Absolute Lymphs (auto) 1.42, Nucleated RBC % 0 02/08/22 11:15: PT 21.7 H, INR 1.9 02/08/22 11:15: Sodium 138, Potassium 3.8, Chloride 106, Carbon Dioxide 24.0, Anion Gap 8, BUN 24 H, Creatinine 1.28, Estim Creat Clear Calc 56.11, Est GFR (MDRD) Af Amer 73, Est GFR (MDRD) Non-Af 60, BUN/Creatinine Ratio 18.8, Glucose 185 H, Calcium 9.0, Troponin I High Sens 90 H 02/08/22 11:15: B-Natriuretic Peptide 2019.1 H 02/08/22 11:50: Lactic Acid 2.5 H* 02/08/22 16:15: Lactic Acid 1.5 Micro: Microbiology 02/08/22 11:50 Nasal Secretion SARS-CoV-2 Antigen (Rapid) - Final Radiology Impression Chest X-Ray 02/08/22 12:05 IMPRESSION: Stable blunting of the right costophrenic angle. Cardiomegaly. Electronically Signed: Spencer Choi MD at 12:28 EDT , Assessment & Plan Assessment/Plan (1) CHF exacerbation: QUALIFIERS: Heart failure type: systolic Qualified Code(s): I50.23 - Acute on chronic systolic (congestive) heart failure PLAN: The patient is a 66 y/o M w/ PMHx: Hx COVID illness 09/2021, CAD s/p NSTEMI, Hx LV Apical Thrombus on coumadin, Systolic CHF/Ischemic Cardiomyopathy, Former Tobacco use, HTN, HLD who presents to the [facility] ED on 02/08/22 initially secondary to recent history of URI ~ 3 weeks prior with since then increased fatigue and malaise and progressively worsening dyspnea, worse with exertion but more severe over the last week with discussions and evaluation by his truck dispatcher with initiation of 40 mg twice daily of his Lasix with a 5-day duration however patient denies significant improvement despite transiently increased urine output with approximate 3 pound weight loss since this regimen has been instituted prompting eventual ED evaluation. He notes feeling more fatigued and weak than prior. #1. Acute on Chronic systolic CHF/ischemic cardiomyopathy with progressively worsening symptoms, suspect potentially further reduced EF, does not appear overtly severely decompensated with mildly elevated troponin (decreased from recent 01/26/22 304): 11/02/2021 echocardiogram with moderately dilated LV with severe global dysfunction with EF of 15%, dramatic sludging with apical thrombus, moderately dilated RV, no hemodynamically significant valve disease, trivial to mild MR, BNP only mildly elevated, no marked orthopnea or weight gain noted. Given awaiting transfer bed at [facility] will temporarily admit to PCU, will continue to cycle cardiac enzymes, magnesium level requested, once BP has improved we will continue patient losartan, isosorbide, Lasix, hydralazine regimen, defer any IV diuresis given patient does not appear severely decompensated and BP low secondary to recent increased oral outpatient lasix regimen, continue aspirin and statin therapy, monitor I's and O's, continue with weight daily monitoring. Will request involvement of [facility] who is familiar and follows with the patient pending his transfer to [facility]. Continue LifeVest. #2. CAD: Status post NSTEMI, cardiac catheterization at [facility] 11/02/2021 with significant severe three-vessel coronary disease with a LAD with severe diffuse disease with up to 95% stenosis in the proximal segment, LCx with moderate diffuse disease up to 80% stenosis in addition to RCA with severe diffuse dis ease with sequential lesions up to 95% of stenosis throughout the proximal and mid vessel with continued aggressive risk factor modification and medical management with eventual recommendation for cardiac transplant, continue aspirin, statin, losartan, not on any beta-alvarez therapy. #3. LV apical thrombus: We will continue patient home Coumadin with INR trending, presentation INR 1.9. #4. Hypertension: Patient in the ED of note has low normal blood pressures, will cautiously continue patient Lasix, hydralazine, isosorbide and losartan once blood pressures have improved. Suspect pressures are low secondary to recent increase of his Lasix regimen temporarily. #5. Hyperlipidemia: Continue home statin regimen. #6. Former tobacco use: Encourage continued tobacco cessation. #7. DVT prophylaxis: SCDs, continue Coumadin with INR trending is noted. #8. CODE status: Patient ROCIO is his and living will is currently in place. Discussed CODE status at length including difference between FULL code, DNR-CCA and DNR-CC status. Following discussions about the differences in these status, requested Full Code status. Advanced Care Planning Face to Face Time: 16 minutes. Charges/Coding Visit Charges OBSV E&M: 13114 Initial observation care L3
--- NOTE | 2022-02-09 02:03 | ED.RN ---
[facility] called and checked up on bed status at this time. patient still waiting for bed assignment
[2022-02-09 02:18] VITALS: BP 106/77; PULSE 81; RESP 17; TEMP 36.8; O2SAT 95
[2022-02-09 02:48] VITALS: PULSE 92; BMI 20.9
[2022-02-09 03:02] VITALS: BP 94/76; PULSE 103; RESP 20; TEMP 36.4; O2SAT 95
[2022-02-09 03:51] LABS: Absolute Lymphocyte Count 1.93 X10^3/uL (0.83-4.51); Absolute Neutrophil Count 4.2 X10^3/uL (2.0-7.7); Basophil# 0.04 X10^3/uL; Basophil% 0.6 % (0-1); Eosinophils% 2.9 % (0-5); Hematocrit 38.2 % (40-54); Hemoglobin 12.9 g/dL (13.0-16.5); Lymphocyte # 1.93 X10^3/ul (0.83-4.51); Lymphocyte % 28.3 % (19-41); Mean Corp Hgb Conc 33.8 g/dL (32-36); Mean Corpuscular Hgb 29.7 pg (27.0-32.0); Mean Platelet Vol. 10.9 fl (6.2-12.0); Monocyte# 0.41 X10^3/uL; NRBC Flagged by Analyzer 0 % (0-5); Neutrophil # 4.22 X10^3/uL (2.7-7.7); Neutrophil % 61.8 % (47-70); Platelet Count 254 K/mm3 (150-450); RBC Distribution Width CV 15.2 % (11.6-14.6); RBC Distribution Width SD 49.3 fl (35.1-43.9); Red Blood Count 4.34 M/mm3 (4.6-6.2); White Blood Count 6.8 K/mm3 (4.4-11.0)
[2022-02-09 04:07] LABS: International Normalized Ratio 2.4; Prothrombin Time (Protime)PT. 26.1 SECONDS (11.7-14.9)
[2022-02-09 04:13] LABS: Troponin-I HS 109 pg/mL (3.0-78.0)
[2022-02-09 04:27] LABS: AST(SGOT) 17 U/L (15-37); Alanine Aminotransfer ALT/SGPT 31 U/L (16-61); Albumin, Serum 3.2 g/dL (3.2-5.0); Alkaline Phosphatase 89 U/L (45-117); Anion Gap 9 (5-15); BUN 23 mg/dL (7-18); BUN/Creat Ratio 21.9 RATIO (10-20); Calcium,Total 8.6 mg/dL (8.5-10.1); Chloride 107 mmol/L (98-107); Creatinine, Serum 1.05 mg/dL (0.70-1.30); EST Glomerular Filtration Rate 75 mL/min (>60); Est Glom Filt Rate - Afr Amer 91 mL/min (>60); Estimated Creatinine Clearance 68.46 ml/min; Globulin 3.2 g/dL (2.2-4.2); Glucose 96 mg/dL (74-106); Potassium 3.7 mmol/L (3.5-5.1); Protein, Total 6.4 g/dL (6.4-8.2); Sodium Level 139 mmol/L (136-145)
[2022-02-09 04:31] LABS: Magnesium 2.1 mg/dL (1.6-2.6)
--- NOTE | 2022-02-09 05:32 | NURSING ---
Report called to Melissa CASTELAN at [facility]. Melissa denies farther questions at this time.
[2022-02-09 06:07] LABS: Troponin-I HS 99 pg/mL (3.0-78.0)
[2022-02-09 06:12] VITALS: BP 99/79; PULSE 88; RESP 20; TEMP 36.5; O2SAT 97
[2022-02-09 07:39] LABS: Hemoglobin A1c 5.6 % (3.8-5.6)
--- NOTE | 2022-02-09 08:35 | DS.PCM_ITS ---
Documented by User: Tash Briseno NP, MILEAGE CLERK-C 02/09/22 08:53 Providers Date of Admission: 02/09/22 Date of Discharge: 02/09/22 Primary Care Physician: Dr. Mazin Duran MD Consultations 02/09/22 02:48 Consult: Cardiology Routine Consulting Provider: Mina Larose Reason for Consult: Worsening dyspnea, CAD w/ 3vessel disease, CHF, waiting [facility] transplant txf EMERGENT Consult: No MD Notified: Yes Date Notified: 02/09/22 Time Notified: 01:49 Method of Notification: Text Reason For Visit: CHF EXACERBATION Diagnosis Discharge Diagnosis (1) CHF exacerbation: Status: Chronic Code(s): I50.9 - Heart failure, unspecified Qualifiers: Heart failure type: systolic Qualified Code(s): I50.23 - Acute on chronic systolic (congestive) heart failure Medications at Discharge Home Medications aspirin 81 mg tablet,delayed release 81 mg PO DAILY 11/13/21 atorvastatin 40 mg tablet 40 mg PO QHS 11/13/21 hydralazine 10 mg tablet 10 mg PO TID 11/13/21 isosorbide dinitrate 10 mg tablet 5 mg PO TID tab 11/13/21 losartan 25 mg tablet 12.5 mg PO DAILY tab 12/13/21 warfarin 6 mg PO SUMOWETHFRSA 01/22/22 warfarin 7 mg PO TU 02/08/22 Hospital Course Operations None Procedures None Summary of Care Provided Hospital Course: Patient is a 66 year old male admitted 02/09/22 due to dyspnea, fatigue. 1. Acute on heart failure with reduced ejection fraction/ischemic cardiomyopathy-echocardiogram 11/02/2021 with EF 15%, dramatic sludging with apical thrombus, moderately dilated RV. BNP 2019. Oxygen stable on room air. Chest x-ray without significant congestion. Prior cardiac management at [facility]. LifeVest in place. Patient quickly received bed at [facility] for ongoing cardiac evaluation and management. Stable at time of discharge. 2. Mildly elevated troponin-demand ischemia secondary to #1. Enzymes did not trend. 3. Multivessel CAD-heart cath at [facility] 11/02/2021 with noted severe three-vessel CAD. Patient was recommended risk factor modification/aggressive medical management with eventual recommendation of cardiac transplant. On aspirin, statin, losartan. 4. Hypertension-continue home regimen. Hold parameters in place during admission due to borderline low BP. 5. Hyperlipidemia-continue statin. 6. LV apical thrombus-on Coumadin. INR 2.4 at discharge. 7. Former tobacco use-encouraged continued cessation. Patient seen and examined prior to discharge. Physical assessment as noted below. Transfer to [facility] for further cardiac management. This patient was seen by DANIAL Dubon under the supervision of Dr. Alicia. Physical Exam Const alert, oriented x3 and no apparent distress Orientation / Consciousness: awake, oriented to person, oriented to place and oriented to time HEENT normocephalic and moist oral mucous membranes Eyes PERRL, EOMs intact bilaterally and conjunctivae normal Neck no lymphadenopathy Resp normal respiratory effort and clear to auscultation bilaterally Cardio regular rate, regular rhythm and no murmurs Peripheral Pulses: pulses 2+ throughout GI normal to inspection, nondistended, normoactive bowel sounds, non-tender and non-distended Extremity normal to inspection Skin no rashes or lesions noted Lesions: no lesions Rashes: no rashes Trauma: no lacerations or abrasions Neuro CN's II-XII intact bilaterally, no focal motor deficits, no sensory deficits noted and deep tendon reflexes 2+ bilaterally Psych mental status grossly normal and affect normal Weight / BMI Weight Weight: 150 lb 2.157 oz Body Mass Index (BMI) 20.9 ABG / Lab / Microbiology Data Result Diagrams: 02/09/22 03:37 02/09/22 03:37 Laboratory: Laboratory Results - last 24 hr 02/08/22 11:15: WBC 6.3, RBC 4.60, Hgb 13.7, Hct 40.8, MCV 88.7, MCH 29.8, MCHC 33.6, RDW Std Deviation 49.7 H, RDW Coeff of Danilo 15.4 H, Plt Count 277, MPV 11.2, Immature Gran % (Auto) 0.200, Neut % (Auto) 70.0, Lymph % (Auto) 22.5, [place] % (Auto) 5.1, Eos % (Auto) 1.7, Baso % (Auto) 0.5, Absolute Neuts (auto) 4.4, Absolute Lymphs (auto) 1.42, Nucleated RBC % 0 02/08/22 11:15: PT 21.7 H, INR 1.9 02/08/22 11:15: Sodium 138, Potassium 3.8, Chloride 106, Carbon Dioxide 24.0, Anion Gap 8, BUN 24 H, Creatinine 1.28, Estim Creat Clear Calc 56.11, Est GFR (MDRD) Af Amer 73, Est GFR (MDRD) Non-Af 60, BUN/Creatinine Ratio 18.8, Glucose 185 H, Calcium 9.0, Troponin I High Sens 90 H 02/08/22 11:15: B-Natriuretic Peptide 2019.1 H 02/08/22 11:50: Lactic Acid 2.5 H* 02/08/22 16:15: Lactic Acid 1.5 02/09/22 03:37: Magnesium 2.1 02/09/22 03:37: WBC 6.8, RBC 4.34 L, Hgb 12.9 L, Hct 38.2 L, MCV 88.0, MCH 29.7, MCHC 33.8, RDW Std Deviation 49.3 H, RDW Coeff of Danilo 15.2 H, Plt Count 254, MPV 10.9, Immature Gran % (Auto) 0.400, Neut % (Auto) 61.8, Lymph % (Auto) 28.3, [place] % (Auto) 6.0, Eos % (Auto) 2.9, Baso % (Auto) 0.6, Absolute Neuts (auto) 4.2, Absolute Lymphs (auto) 1.93, Nucleated RBC % 0 02/09/22 03:37: PT 26.1 H, INR 2.4 02/09/22 03:37: Sodium 139, Potassium 3.7, Chloride 107, Carbon Dioxide 23.0, Anion Gap 9, BUN 23 H, Creatinine 1.05, Estim Creat Clear Calc 68.46, Est GFR (MDRD) Af Amer 91, Est GFR (MDRD) Non-Af 75, BUN/Creatinine Ratio 21.9 H, Glucose 96, Calcium 8.6, Total Bilirubin 1.00, AST 17, ALT 31, Alkaline Phosphatase 89, Total Protein 6.4, Albumin 3.2, Globulin 3.2, Albumin/Globulin Ratio 1.0 02/09/22 03:37: Hemoglobin A1c 5.6 02/09/22 03:37: Troponin I High Sens 109 H 02/09/22 05:37: Troponin I High Sens 99 H Microbiology: Microbiology 02/08/22 11:50 Nasal Secretion SARS-CoV-2 Antigen (Rapid) - Final Radiography Diagnostic Testing: Radiology Impression Chest X-Ray 02/08/22 12:05 IMPRESSION: Stable blunting of the right costophrenic angle. Cardiomegaly. Electronically Signed: Spencer Choi MD at 12:28 EDT , Meaningful Use Info Meaningful Use Diagnoses (Choose all that apply): CHF CHF CHACORTA/ARB ordered at discharge?: Yes Documented LVEF (%): 15 Discharge Plan Admission Admit Date/Time: 02/09/22 01:46 Primary Reason for Your Visit: CHF Attending Provider: Mike Alicia Primary Care Provider: Mazin Duran Consulting Providers: Mina Larose ; Tamera Recinos Discharge Orders/Prescriptions Prescriptions: No Action aspirin [Adult Low Dose Aspirin] 81 mg tablet,delayed release (DR/EC) 81 mg PO DAILY RF: 0 atorvastatin 40 mg tablet 40 mg PO QHS RF: 0 hydralazine 10 mg tablet 10 mg PO TID RF: 0 isosorbide dinitrate 10 mg tablet 5 mg PO TID RF: 0 losartan 25 mg tablet 12.5 mg PO DAILY RF: 0 Hold Instructions: low BP warfarin 6 mg Tablet 6 mg PO SUMOWETHFRSA RF: 0 warfarin 6 mg Tablet 7 mg PO TU RF: 0 Referrals / Follow Up: Mazin Duran MD [Primary Care Provider] - Disposition Disposition (needs filled in before D/C Order can be placed): [facility] Documented by User: Dr. iMke Alicia MD 02/09/22 11:44 Providers Date of Admission: 02/09/22 Reason For Visit: CHF EXACERBATION Medications at Discharge Home Medications aspirin 81 mg tablet,delayed release 81 mg PO DAILY 03/07/22 atorvastatin 40 mg tablet 40 mg PO QHS 11/13/21 hydralazine 10 mg tablet 10 mg PO TID 11/13/21 isosorbide dinitrate 10 mg tablet 5 mg PO TID tab 11/13/21 losartan 25 mg tablet 12.5 mg PO DAILY tab 12/13/21 warfarin 6 mg PO SUMOWETHFRSA 01/22/22 warfarin 7 mg PO TU 02/08/22 Hospital Course Operations None Summary of Care Provided Minutes Spent on Discharge: 40 Hospital Course: This patient was seen in conjunction with MARYLOU Dubon . I have independently interviewed and examined the patient and reviewed pertinent historical, laboratory, and other data. Please refer to DANIAL Dubon note for details of this patient's presentation, findings, and recommendations. I have reviewed DANIAL Dubon note and concur wit h documented findings. In brief, patient is a 66-year-old gentleman with history of ischemic cardio myopathy with an ejection fraction of 15% currently awaiting transplant at [facility] presented with shortness of breath. An assessment of acute on chronic congestive heart failure with reduced ejection fraction made. Arrangements were made for patient to be transferred from the [facility] to [facility] for subsequent management Assessment: 1. Acute on chronic congestive heart failure with ejection fraction EF 15% 2. Dramatic sludging with apical thrombus systemic anticoagulation 3. Multivessel coronary artery disease 4. Essential hypertension 5. Dyslipidemia Hospital course; as documented above Total time spent by myself and the advanced practice practitioner evaluating patient, reviewing labs, subsequent management decisions, discussion with patient as well as other providers 40 minutes ( 25 of which was spent by myself) ABG / Lab / Microbiology Data Result Diagrams: 02/09/22 03:37 02/09/22 03:37 Discharge Plan Admission Admit Date/Time: 02/09/22 01:46 Primary Reason for Your Visit: CHF Attending Provider: Mike Alicia Primary Care Provider: Mazin Duran Consulting Providers: Mina Larose ; Tamera Recinos Discharge Orders/Prescriptions Prescriptions: No Action aspirin [Adult Low Dose Aspirin] 81 mg tablet,delayed release (DR/EC) 81 mg PO DAILY RF: 0 atorvastatin 40 mg tablet 40 mg PO QHS RF: 0 hydralazine 10 mg tablet 10 mg PO TID RF: 0 isosorbide dinitrate 10 mg tablet 5 mg PO TID RF: 0 losartan 25 mg tablet 12.5 mg PO DAILY RF: 0 Hold Instructions: low BP warfarin 6 mg Tablet 6 mg PO SUMOWETHFR RF: 0 warfarin 6 mg Tablet 7 mg PO RF: 0 Referrals / Follow Up: Mazin Duran MD [Primary Care Provider] - Disposition Disposition (needs filled in before D/C Order can be placed): Acute Care Hospital Charges/Coding Visit Charges Inpatient E&M: 87038 Disch Hosp Hospital Course Consultations Consultations: Consultations 02/09/22 02:48 Consult: Cardiology Routine Consulting Provider: Mina Larose Reason for Consult: Worsening dyspnea, CAD w/ 3vessel disease, CHF, waiting [facility] transplant txf EMERGENT Consult: No MD Notified: Yes Date Notified: 02/09/22 Time Notified: 01:49 Method of Notification: Text Operations None
== END 2022-02-09 08:26 | disposition short-term general hospital (02) ==
LOC: ED 17:03 → PCU 02-09 02:40
PROVIDERS: Admitting Provider Family Medicine; Emergency Provider Emergency Medicine; PCP Family Medicine; Visit Provider Internal Medicine
DX: I11.0 Hypertensive heart disease with heart failure (principal); I50.23 Acute on chronic systolic (congestive) heart failure; E78.5 Hyperlipidemia, unspecified; R73.9 Hyperglycemia, unspecified; R53.81 Other malaise; I25.10 Atherosclerotic heart disease of native coronary artery without angina pectoris; R53.1 Weakness; Z87.891 Personal history of nicotine dependence; Z79.82 Long term (current) use of aspirin; Z79.01 Long term (current) use of anticoagulants; Z79.899 Other long term (current) drug therapy; I25.2 Old myocardial infarction; I25.5 Ischemic cardiomyopathy
CPT/HCPCS: 36415; 71045; 80048; 80053; 83036; 83605; 83735; 83880; 84484; 85025; 85610; 87811; 93005; 99218; 99285; A4216; G0378

== ENCOUNTER 2022-02-21 09:23 | Outpatient (RCR) | payer OTHER, SELFPAY ==
[2021-12-19 08:27] VITALS: BMI 20.5
[2022-01-15 07:19] VITALS: BMI 21.8
== END 2022-03-08 23:59 ==
LOC: NS 09:23
PROVIDERS: PCP Family Medicine; Referring Provider Internal Medicine Cardiovascular Disease; Visit Provider Internal Medicine Cardiovascular Disease
DX: Z71.3 Dietary counseling and surveillance (principal); I25.10 Atherosclerotic heart disease of native coronary artery without angina pectoris; Z68.21 Body mass index [BMI] 21.0-21.9, adult; I50.23 Acute on chronic systolic (congestive) heart failure
CPT/HCPCS: 97802

== ENCOUNTER → 2022-02-21 | Outpatient (CLI) | payer OTHER, SELFPAY ==
[2022-01-15 07:19] VITALS: BMI 21.8
--- NOTE | 2022-02-21 12:31 | RAD_ITS ---
STUDY: X-RAY CHEST REASON FOR EXAM: Male, 66 years old. SOB TECHNIQUE: PA and lateral views of the chest. COMPARISON: 02/08/2022 FINDINGS: The lungs are clear and expanded. There is no demonstrated pleural abnormality. Normal size heart. Normal mediastinum and jairo. Normal visualized pulmonary arteries. Normal visualized aortic arch and descending thoracic aorta. Normal visualized thoracic spine. Normal visualized ribs, clavicles, and shoulders. There is no demonstrated abnormality of the visualized soft tissue structures of the upper abdomen. RAD/Chest PA and Lateral IMPRESSION: Normal x-ray examination of the chest. Electronically Signed: Bipin Earl MD at 16:52 EDT ,
[2022-02-21 13:26] LABS: Anion Gap 6 (5-15); BUN 29 mg/dL (7-18); Calcium,Total 9.4 mg/dL (8.5-10.1); Chloride 103 mmol/L (98-107); Creatinine, Serum 1.16 mg/dL (0.70-1.30); EST Glomerular Filtration Rate 67 mL/min (>60); Est Glom Filt Rate - Afr Amer 81 mL/min (>60); Glucose 91 mg/dL (74-106); Potassium 3.8 mmol/L (3.5-5.1); Sodium Level 138 mmol/L (136-145)
== END | disposition home or self-care (01) ==
PROVIDERS: PCP Family Medicine; Visit Provider Nurse Practitioner Family
DX: I25.5 Ischemic cardiomyopathy (principal); I25.10 Atherosclerotic heart disease of native coronary artery without angina pectoris; I51.3 Intracardiac thrombosis, not elsewhere classified; R06.02 Shortness of breath
CPT/HCPCS: 36415; 71046; 80048; 83735; 83880